=== PATIENT | male | born 1960 | race Caucasian/White ===

== ENCOUNTER 2023-10-28 18:32 | Inpatient (IN) | payer OTHER, SELFPAY ==
[2023-10-28] VITALS (9 sets, daily range): BP systolic 150–163; BP diastolic 77–92; PULSE 80–90; RESP 18–38; TEMP 37.3–38.7; O2SAT 91–95; BMI 30.8
--- NOTE | 2023-10-28 18:52 | ED.GENADULT ---
HPI - General Adult General Chief complaint: Syncope Stated complaint: N/V/D hit head T-0 Time Seen by Provider: 10/28/23 18:45 Source: patient Mode of arrival: Ambulatory History of Present Illness HPI narrative: Patient is a 63-year-old male. Is a diabetic. Has history of hypertension. Is on Trulicity for his diabetes. Several days ago started to develop nausea vomiting and diarrhea. Three days ago he was seen at an outside hospital. Had labs and IV fluids. Was discharged home with Zofran. Patient has continued to have his nausea and vomiting and diarrhea despite the nausea medications since he was seen at the outside facility. His states that he is become more fatigued recently and very unsteady when he walks around. Today he fell and hit his head on the ground. He states he does remember the fall. States he did not have chest pain or lightheadedness or shortness of breath or abdominal pain prior to falling. He currently has no specific pain in his arms or legs or hips. No chest pain no shortness of breath. Is having some abdominal cramping. Related Data Home Medications Medication Instructions Recorded Confirmed amlodipine 10 mg tablet 10 mg PO DAILY 10/28/23 10/28/23 celecoxib 200 mg capsule (Celebrex) 200 mg PO DAILY 10/28/23 10/28/23 cholecalciferol (vitamin D3) 125 125 mcg PO DAILY 10/28/23 10/28/23 mcg (5,000 unit) tablet dulaglutide 1.5 mg/0.5 mL 1.5 mg SUBCUT WEEKLY 10/28/23 10/28/23 subcutaneous pen injector (Trulicity) epinephrine 0.3 mg/0.3 mL 0.3 mg SUBCUT PRN PRN Allergic 10/28/23 10/28/23 injection, auto-injector (EpiPen) Reaction escitalopram oxalate 10 mg tablet 10 mg PO BEDTIME 10/28/23 10/28/23 (Lexapro) finasteride 5 mg tablet 5 mg PO DAILY 10/28/23 10/28/23 losartan 100 mg tablet 100 mg PO DAILY 10/28/23 10/28/23 magnesium 200 mg tablet 400 mg PO DAILY 10/28/23 10/28/23 multivitamin 1 tab PO DAILY 10/28/23 10/28/23 tamsulosin 0.4 mg capsule 0.4 mg PO BID 10/28/23 10/28/23 Allergies Allergy/AdvReac Type Severity Reaction Status Date / Time aspirin Allergy Hives Verified 10/28/23 18:52 [place] nut Allergy Anaphylaxis Verified 10/28/23 18:52 michael seed Allergy Anaphylaxis Verified 10/28/23 18:52 flaxseed Allergy Anaphylaxis Verified 10/28/23 18:52 hazelnut Allergy Anaphylaxis Verified 10/28/23 18:52 ibuprofen Allergy Hives Verified 10/28/23 18:52 pine nut Allergy Anaphylaxis Verified 10/28/23 18:52 sesame seed Allergy Anaphylaxis Verified 10/28/23 18:52 oxycodone AdvReac Vomiting Verified 10/28/23 18:52 Review of Systems Review of Systems ROS Unobtainable: All systems reviewed & are unremarkable except as noted in HPI and below Constitutional Constitutional: Reports system reviewed and no additional complaints, except as documented Patient History Social History household members: spouse Smoking Status: Never smoker alcohol intake: current Smoking Status: Never smoker alcohol intake frequency: holidays/special occasions only Substance Use Type: does not use Exam Initial Vital Signs Initial Vital Signs: Vital Signs Temperature 99.2 F 10/28/23 18:46 Pulse Rate 86 10/28/23 18:46 Respiratory Rate 18 10/28/23 18:46 Blood Pressure 153/90 H 10/28/23 18:46 Pulse Oximetry 91 10/28/23 18:46 Oxygen Delivery Method Room Air 10/28/23 18:46 Const General: cooperative and comfortable HENWI Head: contusion (Right forehead) Resp Effort & Inspection: normal respiratory effort, not labored and no respiratory distress Auscultation: clear to auscultation bilaterally Cardio Rate: regular rate Rhythm: regular rhythm GI Inspection: normal to inspection and non-distended Palpation: soft and No tender Skin General: no rashes or lesions noted Neuro General: patient alert, patient awake and moves all extremities Other: Patient is alert oriented but is obviously slow at answering questions. His states this is not normal for him Extrem General: No edema Scores GCS [place] coma scale eye opening: Spontaneous [place] coma scale verbal response: Orientated [place] coma scale motor response: Obey commands Marvin coma scale total score: 15 Course Orders Ordered: ED Orders 10/28/23 18:53 CT head/brain wo con Stat 10/28/23 18:54 EKG-12 Lead Stat 10/28/23 18:57 Complete Blood Count AUTO DIFF Stat Comprehensive Metabolic Panel Stat Lipase Stat 10/28/23 19:00 Covid-19 + FLU A/B + RSV - PCR Stat 10/28/23 19:53 Urine Microscopic Stat Acetaminophen (Acetaminophen 325 Mg Tablet) 650 mg PO Q6H PRN PRN Reason: Fever/Mild Pain (1-3) Al Hydrox/Mg Hydrox/Simethicone (Mag Hydrox/Alum/Simeth 30 Ml Udc) 30 ml PO Q6HR PRN PRN Reason: Dyspepsia Albuterol (Albuterol 2.5 Mg/3 Ml Neb (Adult)) 2.5 mg INH [id number] PRN PRN Reason: Shortness Of Breath Enoxaparin Sodium (Enoxaparin 30 Mg/0.3 Ml Syringe) 30 mg SUBCUT DAILY LIZETT Guaifenesin (Guaifenesin Er 600 Mg Tab) 600 mg PO Q12HR PRN PRN Reason: Cough Sodium Chloride (Normal Saline 0.9%) 1,000 mls @ 150 mls/hr IV CONT LIZETT Last Admin: 10/28/23 22:38 Dose: 150 mls/hr Documented By: SR Ceftriaxone Sodium 2,000 mg/ (Sodium Chloride) 100 mls @ 200 mls/hr IV Q24H LIZETT Naloxone HCl (Naloxone 0.4 Mg/Ml Vial) 0.2 mg IV Q2MIN PRN PRN Reason: Opiate Reversal Ondansetron HCl (Ondansetron 4 Mg/2 Ml Inj) 4 mg IV Q8HR PRN PRN Reason: Nausea And Vomiting Discontinued Medications Acetaminophen (Acetaminophen 325 Mg Tablet) 650 mg PO NOW ONE Stop: 10/28/23 21:06 Last Admin: 10/28/23 22:39 Dose: 650 mg Documented By: SR Sodium Chloride (Normal Saline 0.9%) 1,000 mls @ 1,000 mls/hr IV BOLUS ONE Stop: 10/28/23 19:51 Last Admin: 10/28/23 18:58 Dose: 1,000 mls/hr Documented By: BS Azithromycin 500 mg/ Dextrose 250 mls @ 250 mls/hr IV NOW ONE Stop: 10/28/23 20:51 Last Admin: 10/28/23 23:09 Dose: 250 mls/hr Documented By: SR Ceftriaxone Sodium 1,000 mg/ (Sodium Chloride) 100 mls @ 200 mls/hr IV NOW ONE Stop: 10/28/23 20:51 Last Admin: 10/28/23 22:38 Dose: 200 mls/hr Documented By: SR Metoclopramide HCl (Metoclopramide 10 Mg/2 Ml Inj) 10 mg IV NOW ONE Stop: 10/28/23 18:53 Last Admin: 10/28/23 18:58 Dose: 10 mg Documented By: BS Vital Signs Vital signs: Vital Signs - 8 hr 10/28/23 18:46 10/28/23 19:04 10/28/23 19:30 Temperature 99.2 F Pulse Rate 86 80 Respiratory Rate 18 27 H Blood Pressure 153/90 H 159/85 H Pulse Oximetry 91 91 Oxygen Delivery Method Room Air Room Air 10/28/23 19:30 10/28/23 20:00 10/28/23 20:00 Temperature Pulse Rate 81 82 Respiratory Rate 30 H 33 H Blood Pressure 153/87 H Pulse Oximetry 93 92 Oxygen Delivery Method Room Air Room Air Medical Decision Making Medical Records Medical records reviewed: Yes I reviewed the patient's medical records. Lab Data Lab results reviewed: Yes I reviewed the patient's lab results. 10/28/23 18:57 10/28/23 18:57 Labs: Lab Results 10/28/23 10/28/23 10/28/23 Range/Units 18:51 18:57 19:00 WBC 15.6 H (4.5-11.0) X10^3/uL RBC 5.12 (4.5-5.9) X10^6/uL Hgb 15.3 (13.5-17.5) g/dL Hct 42.8 (41-53) % MCV 83.7 (80-100) fL MCH 29.8 (26-34) PG MCHC 35.6 (30-36) % RDW 13.7 (11.6-14.8) % Plt Count 225 (150-400) X10^3/uL Neut % (Auto) 90.8 H (50-75) % Lymph % (Auto) 2.2 L (25-40) % [place] % (Auto) 6.9 (3-14) % Eos % (Auto) 0.0 L (2-4) % Baso % (Auto) 0.1 (0-2) % Neut # (Auto) 99765 H (8745-2738) /uL Lymph # (Auto) 300 L (1757-3640) /uL Harrison # (Auto) 1100 H (0-900) /uL Eos # (Auto) 0 (0-450) /uL Baso # (Auto) 0 (0-100) /uL Sodium 119 L* (137-145) mmol/L Potassium 3.6 (3.4-5.1) mmol/L Chloride 82 L (98-107) mmol/L Carbon Dioxide 26 (22-32) mmol/L BUN 19 (9-20) mg/dL Creatinine 0.78 (0.66-1.25) mg/dL Estimated GFR > 60 (>60) mL/min BUN/Creatinine Ratio 24.4 H (6-22) Glucose 217 H (80-110) mg/dL Lactate 1.6 (0.7-2.1) mmol/L Calcium 8.9 (8.4-10.2) mg/dL Total Bilirubin 1.7 H (0.2-1.3) mg/dL AST 86 H (17-59) IU/L ALT 91 H (<50) IU/L Alkaline Phosphatase 78 (38-126) U/L Total Protein 7.2 (6.3-8.2) g/dL Albumin 3.7 (3.5-5.0) g/dL Globulin 3.5 (1.7-4.1) g/dL Albumin/Globulin Ratio 1.1 (1.0-2.8) Lipase 51 (23-300) U/L Procalcitonin 1.43 H (<0.5) ng/mL Urine RBC (0-5/HPF) Urine WBC (0-5/HPF) Ur Squamous Epith Cells (0-5/HPF) Urine Bacteria (None) Ur Culture Indicated? Chlamy pneumoniae PCR Not detected (Not Detect) Adenovirus (PCR) Not detected (Not Detect) B.parapertussis DNA PCR Not detected (Not Detecte) Coronavirus OC43 (PCR) Not detected (Not Detect) Coronavirus HKU1 (PCR) Not detected (Not Detect) Coronavirus 229E (PCR) Not detected (Not Detect) SARS-CoV-2 (PCR) Negative (Negative) Coronavirus NL63 (PCR) (Not Detect) Human Metapneumovir PCR (Not Detect) Influenza A (RT-PCR) (NEGATIVE) Influenza Type A (PCR) (Not Detect) Influenza B (RT-PCR) (NEGATIVE) Influenza Type B (PCR) (Not Detect) M. pneumoniae (PCR) (Not Detect) Parainfluenza 1 (PCR) (Not Detect) Parainfluenza 2 (PCR) (Not Detect) Parainfluenza 3 (PCR) (Not Detect) Parainfluenza 4 (PCR) (Not Detect) RSV (PCR) (Negative) Entero/Rhino (PCR) (Not Detect) 10/28/23 10/28/23 10/28/23 Range/Units 19:00 19:00 19:53 WBC (4.5-11.0) X10^3/uL RBC (4.5-5.9) X10^6/uL Hgb (13.5-17.5) g/dL Hct (41-53) % MCV (80-100) fL MCH (26-34) PG MCHC (30-36) % RDW (11.6-14.8) % Plt Count (150-400) X10^3/uL Neut % (Auto) (50-75) % Lymph % (Auto) (25-40) % Harrison % (Auto) (3-14) % Eos % (Auto) (2-4) % Baso % (Auto) (0-2) % Neut # (Auto) (3475-1046) /uL Lymph # (Auto) (0277-5586) /uL Harrison # (Auto) (0-900) /uL Eos # (Auto) (0-450) /uL Baso # (Auto) (0-100) /uL Sodium (137-145) mmol/L Potassium (3.4-5.1) mmol/L Chloride (98-107) mmol/L Carbon Dioxide (22-32) mmol/L BUN (9-20) mg/dL Creatinine (0.66-1.25) mg/dL Estimated GFR (>60) mL/min BUN/Creatinine Ratio (6-22) Glucose (80-110) mg/dL Lactate (0.7-2.1) mmol/L Calcium (8.4-10.2) mg/dL Total Bilirubin (0.2-1.3) mg/dL AST (17-59) IU/L ALT (<50) IU/L Alkaline Phosphatase (38-126) U/L Total Protein (6.3-8.2) g/dL Albumin (3.5-5.0) g/dL Globulin (1.7-4.1) g/dL Albumin/Globulin Ratio (1.0-2.8) Lipase (23-300) U/L Procalcitonin (<0.5) ng/mL Urine RBC 1-5/hpf (0-5/HPF) Urine WBC 0-1/hpf (0-5/HPF) Ur Squamous Epith Cells 0-1 /hpf (0-5/HPF) Urine Bacteria Few (2-10) H (None) Ur Culture Indicated? Cult not indicated Chlamy pneumoniae PCR (Not Detect) Adenovirus (PCR) (Not Detect) B.parapertussis DNA PCR (Not Detecte) Coronavirus OC43 (PCR) (Not Detect) Coronavirus HKU1 (PCR) (Not Detect) Coronavirus 229E (PCR) (Not Detect) SARS-CoV-2 (PCR) Not detected (Negative) Coronavirus NL63 (PCR) Not detected (Not Detect) Human Metapneumovir PCR Not detected (Not Detect) Influenza A (RT-PCR) Flu a negative (NEGATIVE) Influenza Type A (PCR) Not detected (Not Detect) Influenza B (RT-PCR) Flu b negative (NEGATIVE) Influenza Type B (PCR) Not detected (Not Detect) M. pneumoniae (PCR) Not detected (Not Detect) Parainfluenza 1 (PCR) Not detected (Not Detect) Parainfluenza 2 (PCR) Not detected (Not Detect) Parainfluenza 3 (PCR) Not detected (Not Detect) Parainfluenza 4 (PCR) Not detected (Not Detect) RSV (PCR) Negative Not detected (Negative) Entero/Rhino (PCR) Not detected (Not Detect) Urine Dip Bedside Urine Glucose Negative Bedside Urine Bilirubin - Negative Bedside Urine Ketone - Negative Urine Specific [place] 1.025 Bedside Urine Occult Blood +/- Bedside Urine pH 6 Bedside Urine Urobilinogen 2+ 4mg Bedside Urine Nitrite - Negative Bedside Urine Leukocytes - Negative Esterase Point of care testing: Urine Dip Bedside Urine Glucose Negative Bedside Urine Bilirubin - Negative Bedside Urine Ketone - Negative Urine Specific [place] 1.025 Bedside Urine Occult Blood +/- Bedside Urine pH 6 Bedside Urine Urobilinogen 2+ 4mg Bedside Urine Nitrite - Negative Bedside Urine Leukocytes - Negative Esterase Imaging Data CT scan - head: Radiologist's Impression: PROCEDURE: CT HEAD/BRAIN WO CON INDICATIONS: fall with head injury, headache, vomiting TECHNIQUE: Noncontrast 4.5 mm thick angled axial sections acquired from the foramen magnum to the vertex, with coronal and sagittal reformats. For radiation dose reduction, the following was used: automated exposure control, adjustment of mA and/or kV according to patient size. COMPARISON: None. FINDINGS: Image quality: Nondiagnostic CSF spaces: Fairly symmetric ventricular system and grossly patent basal cisterns. No definite extra-axial fluid collections, though small once may be obscured by motion artifact. Brain: No obvious intraparenchymal hemorrhage or mass effect. Small details may be missed by motion artifact. Skull and face: No visible depressed skull fracture or significant subgaleal hematoma. Sinuses: Visualized sinuses and mastoids are clear. IMPRESSION: 1. Suboptimal scan due to motion artifact. 2. Given limitations due to motion, no acute abnormalities are seen. Chest x-ray: Radiologist's Impression: PROCEDURE: XR CHEST 1V INDICATIONS: eval for PNA TECHNIQUE: One view of the chest was acquired. COMPARISON: Non FINDINGS: Surgical changes and devices: None. Lungs and pleura: Dense consolidations throughout the left lung as well as the right lower lung. No pleural effusions or pneumothorax. Mediastinum: Mediastinal contours appear normal. Heart size is normal. Bones and chest wall: No suspicious bony lesions. Overlying soft tissues appear unremarkable. IMPRESSION: Left lung and right lower lung dense consolidations are concerning for multifocal pneumonia. ECG Data Attestation: I personally reviewed and interpreted this ECG as follows: Interpretation: Sinus rhythm Ventricular rate 82 Normal axis Normal QRS No ST T wave changes MDM Narrative Medical decision making narrative: Initially patient arrived alert, afebrile, oxygen saturations in the low 90s in clinically signs of dehydration with dry skin and dry mucous membranes. This did fit the clinical presentation of multiple days of nausea vomiting and diarrhea. He was obviously slow to answer questions. He did fall and hit his head. It sounds like he just lost his balance and fell forward. He has no specific injuries from this other than abrasions on his forehead. His head CT was unremarkable. Labs then returned. Kidney functions unremarkable. Does have a leukocytosis. Still did not have a specific source of an infection. Patient was found to be hyponatremic with a sodium of 119. I was able to obtain records from his emergency department visit at an outside facility just 3 days ago where his sodium was 131. Patient has been administered fluids. He was given Reglan for his nausea as the Zofran at home seems to not be working for him. At this point decision was made to admit to the hospital. Further evaluation with the patient's states that he has had a cough recently but no fevers. Some concern about Legionella has this infection can give hyponatremia and also GI effects specifically in the setting of his oxygen saturations in the low 90s. I discussed this with the hospitalist. Plan will be to admit to the hospital. A respiratory panel was then added to his labs which was subsequently negative. Chest x-ray was obtained. There was concern on the chest x-ray about multifocal pneumonia. This is when repeat vital signs show that the patient is now febrile. Blood cultures have been ordered. We will treat his pneumonia with Rocephin and azithromycin. Procalcitonin and lactate ordered with procalcitonin being elevated lactate be normal. I did discuss the case with Dr. Holcomb hospitalist on-call who will admit for further evaluation and treatment. Discussed the need for admission with the patient and . They expressed understanding and agreement as well. Discharge Plan Departure Patient Disposition: Admitted As Inpatient Clinical Impression: Hyponatremia, Dehydration, Nausea and vomiting, Diarrhea, Pneumonia Admit Date/Time: 10/28/23 20:28 Admit Provider: Honorio Mckinnon
[2023-10-28] MEDS: METOCLOPRAMIDE 10 MG/2 ML INJ IV (18:58)
[2023-10-28] MEDS: SODIUM CHLORIDE 0.9% 1,000 ML 1000 ML IV (18:58)
--- NOTE | 2023-10-28 19:12 | PC.NURSE ---
To CT via stretcher
[2023-10-28 19:13] LABS: Alanine Aminotransferase 91 IU/L (<50); Albumin 3.7 g/dL (3.5-5.0); Albumin Globulin Ratio 1.1 (1.0-2.8); Alkaline Phosphatase 78 U/L (38-126); BUN Creatinine Ratio 24.4 (6-22); Bilirubin Total 1.7 mg/dL (0.2-1.3); Blood Urea Nitrogen 19 mg/dL (9-20); Calcium 8.9 mg/dL (8.4-10.2); Carbon Dioxide 26 mmol/L (22-32); Chloride 82 mmol/L (98-107); Estimated Glomerular Filt Rate > 60 mL/min (>60); Globulin 3.5 g/dL (1.7-4.1); Glucose 217 mg/dL (80-110); HEMOLYSIS < 15 (0-50); Lipase 51 U/L (23-300); Potassium 3.6 mmol/L (3.4-5.1); Total Protein 7.2 g/dL (6.3-8.2)
[2023-10-28 19:16] LABS: Sodium 119 mmol/L (137-145)
[2023-10-28 19:21] LABS: Add Manual Diff / Slide Review NO; Basophils Absolute Auto 0 /uL (0-100); Basophils Percent Auto 0.1 % (0-2); Eosinophils Absolute Auto 0 /uL (0-450); Hematocrit 42.8 % (41-53); Hemoglobin 15.3 g/dL (13.5-17.5); Lymphocytes Absolute Auto 300 /uL (1100-4500); Lymphocytes Percent Auto 2.2 % (25-40); Mean Corpuscular HGB Conc 35.6 % (30-36); Mean Corpuscular Hemoglobin 29.8 PG (26-34); Mean Corpuscular Volume 83.7 fL (80-100); Monocytes Absolute Auto 1100 /uL (0-900); Monocytes Percent Auto 6.9 % (3-14); Neutrophils Absolute Auto 14200 /uL (1500-7000); Neutrophils Percent Auto 90.8 % (50-75); Platelet Count 225 X10^3/uL (150-400); Red Blood Cell Count 5.12 X10^6/uL (4.5-5.9); Red Cell Distribution Width 13.7 % (11.6-14.8); White Blood Cell Count 15.6 X10^3/uL (4.5-11.0)
--- NOTE | 2023-10-28 19:25 | PC.NURSE ---
Returned from CT. Remains A&OX4, speech clear/ appropriate. C/O persistent 8/10 SERRA along w/ hiccoughs & mild nausea.
[2023-10-28 19:29] LABS: Aspartate Aminotransferase 86 IU/L (17-59)
[2023-10-28 20:08] LABS: Influenza A - CEPHEID Flu A NEGATIVE (NEGATIVE); Influenza B - CEPHEID Flu B NEGATIVE (NEGATIVE); Respiratory Syncytial Virus Negative (Negative)
[2023-10-28 20:15] LABS: COVID-19 CEPHEID 4-PLEX PCR Negative (Negative)
[2023-10-28 20:29] LABS: Bacteria Urine Few (2-10); Culture Indicated Urine Cult Not Indicated; RBC Urine 1-5/HPF (0-5/HPF); Squamous Epithelial Cell Urine 0-1 /HPF (0-5/HPF); WBC Urine 0-1/HPF (0-5/HPF)
--- NOTE | 2023-10-28 20:32 | DI.RAD.S_ITS ---
PROCEDURE: XR CHEST 1V INDICATIONS: eval for PNA TECHNIQUE: One view of the chest was acquired. COMPARISON: Non FINDINGS: Surgical changes and devices: None. Lungs and pleura: Dense consolidations throughout the left lung as well as the right lower lung. No pleural effusions or pneumothorax. Mediastinum: Mediastinal contours appear normal. Heart size is normal. Bones and chest wall: No suspicious bony lesions. Overlying soft tissues appear unremarkable. IMPRESSION: Left lung and right lower lung dense consolidations are concerning for multifocal pneumonia. Approved by: Kathy Van M.D. on 10/28/2023 at 21:24
[2023-10-28 21:04] LABS: Lactate (Lactic Acid) 1.6 mmol/L (0.7-2.1)
[2023-10-28 21:22] LABS: Procalcitonin 1.43 ng/mL (<0.5)
[2023-10-28] MEDS: SODIUM CHLORIDE 0.9% 1,000 ML 150 ML IV (22:38)
[2023-10-28] MEDS: cefTRIAXone 1,000 MG in SODIUM CHLORIDE 0.9% 100 ML 200 MG IV (22:38)
[2023-10-28] MEDS: ACETAMINOPHEN 325 MG TABLET 650 MG PO (22:39)
[2023-10-28 22:58] LABS: Adenovirus Not Detected (Not Detect); B. parapertussis Not Detected (Not Detecte); Bordetella pertussis Not Detected (Not Detect); Chlamydophila pneumoniae Not Detected (Not Detect); Coronavirus 229E Not Detected (Not Detect); Coronavirus HKU1 Not Detected (Not Detect); Coronavirus NL 63 Not Detected (Not Detect); Coronavirus OC43 Not Detected (Not Detect); Human Metapneumovirus Not Detected (Not Detect); Human Rhinovirus/Enterovirus Not Detected (Not Detect); Influenza A Not Detected (Not Detect); Influenza B Not Detected (Not Detect); Mycoplasma pneumoniae Not Detected (Not Detect); Parainfluenza Virus 1 Not Detected (Not Detect); Parainfluenza Virus 2 Not Detected (Not Detect); Parainfluenza Virus 3 Not Detected (Not Detect); Parainfluenza Virus 4 Not Detected (Not Detect); Respiratory Syncytial Virus Not Detected (Not Detect); SARS- CoV-2 Not Detected (Not Detecte)
[2023-10-28] MEDS: AZITHROMYCIN 500 MG in DEXTROSE 5% IN WATER 250 ML 250 MG IV (23:09)
[2023-10-29] VITALS (9 sets, daily range): BP systolic 119–152; BP diastolic 69–84; PULSE 70–93; RESP 16–22; TEMP 36.2–37.7; O2SAT 91–97
[2023-10-29 02:15] LABS: BUN Creatinine Ratio 19.5 (6-22); Blood Urea Nitrogen 17 mg/dL (9-20); Calcium 7.9 mg/dL (8.4-10.2); Carbon Dioxide 27 mmol/L (22-32); Chloride 84 mmol/L (98-107); Estimated Glomerular Filt Rate > 60 mL/min (>60); Glucose 208 mg/dL (80-110); HEMOLYSIS < 15 (0-50); Potassium 3.3 mmol/L (3.4-5.1); Sodium 121 mmol/L (137-145)
--- NOTE | 2023-10-29 03:36 | P.HP_ITS ---
History of Present Illness History of Present Illness Date Patient Seen: 10/28/23 Chief complaint: N/V/D hit head T-0 Narrative: PNA, Hyponatremia, Syncope 63-year-old male. Is a diabetic. Has history of hypertension. Is on Trulicity for his diabetes. Several days ago started to develop nausea vomiting and diarrhea. Three days ago he was seen at an outside hospital. Had labs and IV fluids. Was discharged home with Zofran. Patient has continued to have his nausea and vomiting and diarrhea despite the nausea medications since he was seen at the outside facility. His states that he is become more fatigued recently and very unsteady when he walks around. Today he fell and hit his head on the ground. He states he does remember the fall. States he did not have chest pain or lightheadedness or shortness of breath or abdominal pain prior to falling. FORMERLY [facility], 1928–1983 Medical History (Updated 10/29/23 @ 08:49 by Honorio Holcomb MD) Enlarged prostate HTN (hypertension) Social History household members: spouse Smoking Status: Never smoker alcohol intake: current Meds Home Medications and Allergies Home Medications Medication Instructions Recorded Confirmed Type amlodipine 10 mg tablet 10 mg PO DAILY 10/28/23 10/28/23 History celecoxib 200 mg capsule (Celebrex) 200 mg PO DAILY 10/28/23 10/28/23 History cholecalciferol (vitamin D3) 125 125 mcg PO DAILY 10/28/23 10/28/23 History mcg (5,000 unit) tablet dulaglutide 1.5 mg/0.5 mL 1.5 mg SUBCUT WEEKLY 10/28/23 10/28/23 History subcutaneous pen injector (Trulicity) epinephrine 0.3 mg/0.3 mL 0.3 mg SUBCUT PRN PRN Allergic 10/28/23 10/28/23 History injection, auto-injector (EpiPen) Reaction escitalopram oxalate 10 mg tablet 10 mg PO BEDTIME 10/28/23 10/28/23 History (Lexapro) finasteride 5 mg tablet 5 mg PO DAILY 10/28/23 10/28/23 History losartan 100 mg tablet 100 mg PO DAILY 10/28/23 10/28/23 History magnesium 200 mg tablet 400 mg PO DAILY 10/28/23 10/28/23 History multivitamin 1 tab PO DAILY 10/28/23 10/28/23 History tamsulosin 0.4 mg capsule 0.4 mg PO BID 10/28/23 10/28/23 History Allergies Allergy/AdvReac Type Severity Reaction Status Date / Time aspirin Allergy Hives Verified 10/28/23 18:52 [place] nut Allergy Anaphylaxis Verified 10/28/23 18:52 michael seed Allergy Anaphylaxis Verified 10/28/23 18:52 flaxseed Allergy Anaphylaxis Verified 10/28/23 18:52 hazelnut Allergy Anaphylaxis Verified 10/28/23 18:52 ibuprofen Allergy Hives Verified 10/28/23 18:52 pine nut Allergy Anaphylaxis Verified 10/28/23 18:52 sesame seed Allergy Anaphylaxis Verified 10/28/23 18:52 oxycodone AdvReac Vomiting Verified 10/28/23 18:52 Review of Systems Review of Systems Narrative: He was very sleepy during the interview and his was providing some information Constitutional Comments: fatigued Cardiovascular Comments: w/o chest pain Gastrointestinal Comments: nausea, vomiting, diarrhea Neurologic Comments: headache, frontal Psychiatric Comments: forgetful Exam Vital Signs (past 8 hours): - 10/28/23 20:00 10/28/23 20:00 10/28/23 20:30 Temperature Pulse Rate 82 Respiratory Rate 33 H Blood Pressure 153/87 H 163/92 H Pulse Oximetry 92 Oxygen Delivery Method Room Air Oxygen Flow Rate 10/28/23 20:30 10/28/23 20:53 10/28/23 21:00 Temperature 101.6 F H Pulse Rate 83 Respiratory Rate 37 H Blood Pressure 150/77 H Pulse Oximetry 92 Oxygen Delivery Method Room Air Oxygen Flow Rate 10/28/23 21:00 10/28/23 21:30 10/28/23 21:30 Temperature Pulse Rate 81 82 Respiratory Rate 37 H 38 H Blood Pressure 155/85 H Pulse Oximetry 92 94 Oxygen Delivery Method Room Air Nasal Cannula Nasal Cannula Oxygen Flow Rate 2 10/28/23 21:40 10/28/23 22:17 10/29/23 01:00 Temperature 99.6 F 98.4 F Pulse Rate 90 70 Respiratory Rate 24 22 Blood Pressure 154/90 H 119/70 Pulse Oximetry 95 91 Oxygen Delivery Method Nasal Cannula Oxygen Flow Rate 2 Oxygen Delivery Method Nasal Cannula Oxygen Flow Rate 2 Narrative Exam Narrative: laying in bed in no distress, sleepy, in no distress HENMT Other: not traumatic Eyes Other: eomi, reactive and equal pupils Neck Other: supple Resp Other: wheezy Cardio Other: RRR Neuro Other: w/o focal deficits Psych Other: encephalopathic Objective Labs 10/29/23 07:40 10/29/23 07:40 Labs: Laboratory Results - last 24 hr 10/28/23 10/28/23 10/28/23 18:51 18:57 19:00 WBC 15.6 H RBC 5.12 Hgb 15.3 Hct 42.8 MCV 83.7 MCH 29.8 MCHC 35.6 RDW 13.7 Plt Count 225 Neut % (Auto) 90.8 H Lymph % (Auto) 2.2 L [facility] % (Auto) 6.9 Eos % (Auto) 0.0 L Baso % (Auto) 0.1 Neut # (Auto) 77595 H Lymph # (Auto) 300 L [facility] # (Auto) 1100 H Eos # (Auto) 0 Baso # (Auto) 0 Sodium 119 L* Potassium 3.6 Chloride 82 L Carbon Dioxide 26 BUN 19 Creatinine 0.78 Estimated GFR > 60 BUN/Creatinine Ratio 24.4 H Glucose 217 H Lactate 1.6 Calcium 8.9 Total Bilirubin 1.7 H AST 86 H ALT 91 H Alkaline Phosphatase 78 Total Protein 7.2 Albumin 3.7 Globulin 3.5 Albumin/Globulin Ratio 1.1 Lipase 51 Procalcitonin 1.43 H Urine RBC Urine WBC Ur Squamous Epith Cells Urine Bacteria Ur Culture Indicated? Chlamy pneumoniae PCR Not detected Adenovirus (PCR) Not detected B.parapertussis DNA PCR Not detected Coronavirus OC43 (PCR) Not detected Coronavirus HKU1 (PCR) Not detected Coronavirus 229E (PCR) Not detected SARS-CoV-2 (PCR) Negative Coronavirus NL63 (PCR) Human Metapneumovir PCR Influenza A (RT-PCR) Influenza Type A (PCR) Influenza B (RT-PCR) Influenza Type B (PCR) M. pneumoniae (PCR) Parainfluenza 1 (PCR) Parainfluenza 2 (PCR) Parainfluenza 3 (PCR) Parainfluenza 4 (PCR) RSV (PCR) Entero/Rhino (PCR) 10/28/23 10/28/23 10/28/23 19:00 19:00 19:53 WBC RBC Hgb Hct MCV MCH MCHC RDW Plt Count Neut % (Auto) Lymph % (Auto) [facility] % (Auto) Eos % (Auto) Baso % (Auto) Neut # (Auto) Lymph # (Auto) [facility] # (Auto) Eos # (Auto) Baso # (Auto) Sodium Potassium Chloride Carbon Dioxide BUN Creatinine Estimated GFR BUN/Creatinine Ratio Glucose Lactate Calcium Total Bilirubin AST ALT Alkaline Phosphatase Total Protein Albumin Globulin Albumin/Globulin Ratio Lipase Procalcitonin Urine RBC 1-5/hpf Urine WBC 0-1/hpf Ur Squamous Epith Cells 0-1 /hpf Urine Bacteria Few (2-10) H Ur Culture Indicated? Cult not indicated Chlamy pneumoniae PCR Adenovirus (PCR) B.parapertussis DNA PCR Coronavirus OC43 (PCR) Coronavirus HKU1 (PCR) Coronavirus 229E (PCR) SARS-CoV-2 (PCR) Not detected Coronavirus NL63 (PCR) Not detected Human Metapneumovir PCR Not detected Influenza A (RT-PCR) Flu a negative Influenza Type A (PCR) Not detected Influenza B (RT-PCR) Flu b negative Influenza Type B (PCR) Not detected M. pneumoniae (PCR) Not detected Parainfluenza 1 (PCR) Not detected Parainfluenza 2 (PCR) Not detected Parainfluenza 3 (PCR) Not detected Parainfluenza 4 (PCR) Not detected RSV (PCR) Negative Not detected Entero/Rhino (PCR) Not detected 10/29/23 01:54 WBC RBC Hgb Hct MCV MCH MCHC RDW Plt Count Neut % (Auto) Lymph % (Auto) [facility] % (Auto) Eos % (Auto) Baso % (Auto) Neut # (Auto) Lymph # (Auto) [facility] # (Auto) Eos # (Auto) Baso # (Auto) Sodium 121 L Potassium 3.3 L Chloride 84 L Carbon Dioxide 27 BUN 17 Creatinine 0.87 Estimated GFR > 60 BUN/Creatinine Ratio 19.5 Glucose 208 H Lactate Calcium 7.9 L Total Bilirubin AST ALT Alkaline Phosphatase Total Protein Albumin Globulin Albumin/Globulin Ratio Lipase Procalcitonin Urine RBC Urine WBC Ur Squamous Epith Cells Urine Bacteria Ur Culture Indicated? Chlamy pneumoniae PCR Adenovirus (PCR) B.parapertussis DNA PCR Coronavirus OC43 (PCR) Coronavirus HKU1 (PCR) Coronavirus 229E (PCR) SARS-CoV-2 (PCR) Coronavirus NL63 (PCR) Human Metapneumovir PCR Influenza A (RT-PCR) Influenza Type A (PCR) Influenza B (RT-PCR) Influenza Type B (PCR) M. pneumoniae (PCR) Parainfluenza 1 (PCR) Parainfluenza 2 (PCR) Parainfluenza 3 (PCR) Parainfluenza 4 (PCR) RSV (PCR) Entero/Rhino (PCR) Assessment & Plan Assessment and plan (1) Pneumonia: Status: Acute Plan: Started on Rocephin in the ED (2) Hyponatremia: Status: Acute Plan: Acute, had NS in ED BMP monitored slow correction hypovolemic - poor oral intake, nausea, vomiting (3) HTN (hypertension): Status: Acute Plan: Losartan and Norvasc on hold (4) Enlarged prostate: Status: Acute Plan: Flomax / Finasteride (5) Depression: Status: Acute Plan: Lexapro Quality VTE Deep Vein Thrombosis/Pulmonary Embolism Present on Admission: No
[2023-10-29 07:58] LABS: Magnesium 2.1 mg/dL (1.6-2.3)
[2023-10-29 08:12] LABS: Add Manual Diff / Slide Review YES; Alanine Aminotransferase 118 IU/L (<50); Albumin 3.2 g/dL (3.5-5.0); Alkaline Phosphatase 74 U/L (38-126); Aspartate Aminotransferase 112 IU/L (17-59); BUN Creatinine Ratio 22.9 (6-22); Bilirubin Total 1.3 mg/dL (0.2-1.3); Blood Urea Nitrogen 19 mg/dL (9-20); Calcium 8.3 mg/dL (8.4-10.2); Carbon Dioxide 30 mmol/L (22-32); Chloride 85 mmol/L (98-107); Estimated Glomerular Filt Rate > 60 mL/min (>60); Globulin 3.2 g/dL (1.7-4.1); Glucose 179 mg/dL (80-110); HEMOLYSIS < 15 (0-50); Hematocrit 41.7 % (41-53); Hemoglobin 14.7 g/dL (13.5-17.5); Mean Corpuscular HGB Conc 35.3 % (30-36); Mean Corpuscular Hemoglobin 29.9 PG (26-34); Mean Corpuscular Volume 84.7 fL (80-100); Platelet Count 204 X10^3/uL (150-400); Potassium 3.9 mmol/L (3.4-5.1); Red Blood Cell Count 4.92 X10^6/uL (4.5-5.9); Red Cell Distribution Width 13.7 % (11.6-14.8); Sodium 122 mmol/L (137-145); Total Protein 6.4 g/dL (6.3-8.2); White Blood Cell Count 14.1 X10^3/uL (4.5-11.0)
[2023-10-29] MEDS: ONDANSETRON 4 MG/2 ML INJ IV ×3 (08:21→22:52)
[2023-10-29] MEDS: MAGNESIUM OXIDE 400 MG TABLET PO (08:21)
[2023-10-29] MEDS: ACETAMINOPHEN 325 MG TABLET 650 MG PO ×2 (08:22→18:29)
[2023-10-29] MEDS: FINASTERIDE 5 MG TABLET PO (08:22)
[2023-10-29] MEDS: TAMSULOSIN 0.4 MG CAPSULE PO ×2 (08:22→20:28)
[2023-10-29] MEDS: ENOXAPARIN 30 MG/0.3 ML SYRINGE SUBCUT (08:23)
[2023-10-29] MEDS: POTASSIUM CHLORIDE 20 MEQ TAB 40 MEQ PO (08:23)
[2023-10-29] MEDS: levoFLOXacin 750 MG/150 ML PIGGYBACK 100 MG IV (08:23)
[2023-10-29 08:29] LABS: Procalcitonin 1.49 ng/mL (<0.5)
[2023-10-29] MEDS: INSULIN LISPRO 100 UNIT/ML 3ML VIAL SUBCUT ×3 (08:30→16:34)
[2023-10-29] MEDS: INSULIN GLARGINE 100 UNIT/ML 3ML PEN 10 UNIT SUBCUT (08:31)
--- NOTE | 2023-10-29 09:00 | DI.CT.S_ITS ---
PROCEDURE: CT CHEST W CON INDICATIONS: assess pneumonia further TECHNIQUE: After the administration of intravenous contrast, 5 mm thick sections acquired from the pulmonary apices to the posterior costophrenic angles. 1 mm axial lung, 5 mm thick coronal and sagittal reformats and 7 mm axial MIP were acquired. For radiation dose reduction, the following was used: automated exposure control, adjustment of mA and/or kV according to patient size. COMPARISON: [facility], CR, XR CHEST 1V, 10/28/2023, 20:34. FINDINGS: Image quality: Diagnostic. Lower Neck: No enlarged lymph nodes. Thyroid: No thyroid nodules which require sonographic follow up, per consensus guidelines. Axillae: No enlarged lymph nodes. Chest Wall: Unremarkable. Bones: Unremarkable. Lungs and Pleura: No pneumothorax but there are small bilateral posterior free-flowing pleural effusions. The severe lung disease pattern is again noted as was seen on plain film imaging 1 day ago. This is most pronounced at the left upper lobe, and considering differences in technique likely has not changed. Heart: Heart size is normal. No pericardial effusion. Thoracic Vessels: The aorta and pulmonary arteries demonstrate normal size. Mediastinum and Linette: No enlarged lymph nodes. Esophagus: No wall thickening. No hiatal hernia. Upper Abdomen: Visualized upper abdomen solid organs and bowel loops appear normal. IMPRESSION: Bilateral severe pneumonia, left greater than right, again noted. This could represent atypical/viral pneumonia. Small posterior layering simple appearing pleural effusions. No central mass lesion found. Dictated by: Rohan Larsen M.D. on 10/29/2023 at 13:15 Approved by: Rohan Larsen M.D. on 10/29/2023 at 13:17
[2023-10-29 09:44] LABS: Neutrophils Absolute Manual 12126 /uL (3000-5900); RBC Morphology Normal Morphology; Total Cells Counted 100
--- NOTE | 2023-10-29 10:42 | OT.IP.EVAL ---
Current Diagnoses Hypo-osmolality and hyponatremia (10/28/23) Depression, unspecified (10/28/23) Essential (primary) hypertension (10/28/23) Pneumonia, unspecified organism (10/28/23) Benign prostatic hyperplasia without lower urinary tract symptoms (10/28/23) Past Medical History (Last Updated 10/29/23 @ 08:49 by Honorio Holcomb MD) Enlarged prostate HTN (hypertension) Occupational Therapy Inpatient Evaluation/Re-Eval M1 PT/OT-IP Prior Functional Status Start: 10/29/23 11:26 Freq: NEEDED Status: Active Protocol: Document 10/29/23 11:27 [facility] (Rec: 10/29/23 11:41 [facility] [id number]) Medical Review Prior Functional Status Communication Independent Mobility and Gait Independent and did not use a device. Activities of Daily Living and IADL's Completely independent with all ADL, IADL and works for [employer]. Social History Household Members spouse Living Arrangements House Number of Floors (Floors) One Floor Number of Stairs To Enter/Railing? 2 steps with no rails to enter the house. Home Environment High Toilet,Walk in Shower Home Equipment Hand Held Shower Employment Status [employer] Employed M2 OT-IP Current Condition Start: 10/29/23 11:26 Freq: Status: Active Protocol: Document 10/29/23 11:27 [facility] (Rec: 10/29/23 11:41 [facility] [id number]) Occupational Therapy Current Condition Current Condition Evaluation Date 10/28/23 Treatment Diagnosis PNA, hyponatremia, nausea Diagnosis Onset Date 10/29/23 M3 OT- IP Subjective and Pain Start: 10/29/23 11:26 Freq: Status: Active Protocol: Document 10/29/23 11:27 [facility] (Rec: 10/29/23 11:41 [facility] [id number]) OT- Subjective Occupational Therapy Visit Type Type Initial Evaluation Visit Start Time 10:20 Visit Stop Time 10:42 Total Visit Minutes 22 Occupational Therapy Visit Comments Patient Comments Pt agreed to get up, pt's in the room. Patient/Caregiver Goals To go home. OT Pain Assessment Pain When Pain Assessed At Rest Pain Present Pain Present Denied Pain M4 OT- IP ADL's Start: 10/29/23 11:26 Freq: Status: Active Protocol: Document 10/29/23 11:27 [facility] (Rec: 10/29/23 11:41 [facility] [id number]) OT [id number] Comments OT Self-Feeding Comments Per pt's pt has not been able to keep down much food. OT ADL-Grooming Comments OT Grooming Comments Not performed. OT ADL-Oral Care Comments Oral Care Comments Not performed. OT ADL-Dressing Comments OT Dressing Comments Not performed as pt not feeling well. OT ADL-Toileting Comments OT Toileting Comments Pt's states pt able to get to the bathroom earlier with the FWW and assist. OT ADL-Bathing Bathing Type Bathing Type Sponge Bath General Evaluation Bathing Ability Moderate Assistance Areas Needing Assistance Wash/Dry Back Comments OT Bathing Comments Pt able to participate in sponging off at this time. M5 OT- IP IADL's Start: 10/29/23 11:26 Freq: Status: Active Protocol: Document 10/29/23 11:27 [facility] (Rec: 10/29/23 11:41 [facility] [id number]) OT-Instrumental Activities of Daily Living Home Safety Awareness Home Safety Comments Pt is a bit groggy, tired and not feeling well as pt's having to to correct pt's answers at times. M6 OT- IP Functional Cognition Start: 10/29/23 11:26 Freq: Status: Active Protocol: Document 10/29/23 11:27 [facility] (Rec: 10/29/23 11:41 [facility] [id number]) Cognitive Factors Limiting Selfcare Function Cognitive Ability Level of Alertness Alert Patient Orientation Name Attention Span Ability Capable of Focused Attention, Capable of Sustained Attention Ability to Follow Commands Able to Follow One Step Commands Cognitive Comments Cognitive Assessment Comments Pt able to follow command but needing cues for safety for FWW use as pt normally independent with all ambulation needs. Pt's having to answer some questions as pt not thinking clearly at this time. Emphasized for pt not to get up on his own and use the call light for assist due to pt feeling light headed and unsteady on his feet at this time. OT- Vision and Hearing OT- Vision Assessment Visual Acuity Glasses For Reading M7 OT- IP Mobility and Balance Start: 10/29/23 11:26 Freq: Status: Active Protocol: Document 10/29/23 11:27 [facility] (Rec: 10/29/23 11:41 [facility] [id number]) OT-Transfer Assessment Sit to and From Stand Sit to and from Stand Standby Assistance Devices Transfer Assistive Devices Gait Belt,Front Wheeled Walker Comments Mobility Comments VC to push from the bed to stand to the FWW. BP sitting 122/75, dropped to 107/68 standing and then 130/81 while seated on the edge of the bed . Pt not wanting to get back into bed and just wanting to sit at the edge of the bed with his head flexed. OT- Balance Assessment Sitting Balance and Reactions Static Sitting Balance Ability Good Standing Balance and Reactions Static Standing Balance Ability Fair M8 OT- IP Objective Assessments Start: 10/29/23 11:26 Freq: Status: Active Protocol: Document 10/29/23 11:27 [facility] (Rec: 10/29/23 11:41 [facility] [id number]) OT Gross Range of Motion Upper Extremity Range of Motion Assessment Within Functional Limits OT Strength Upper Extremity Strength Assessment Within Functional Limits OT- Coordination Assessment Upper Extremity Finger to Nose Test Within Functional Limits OT-Muscle Tone Assessment Muscle Tone WNL Yes M9 OT- IP Assessment and Plan Start: 10/29/23 11:26 Freq: Status: Active Protocol: Document 10/29/23 11:27 [facility] (Rec: 10/29/23 11:41 [facility] [id number]) OT Summary Assessment and Plan Potential Rehabilitation Potential Good Analytic Complexity at Evaluation Moderate Summary OT Impairments Balance,Functional Mobility, Grooming,Dressing,Toileting, Bathing,Toilet Transfers, Shower Transfers,Activity Tolerance Progress Towards Goals Slow Progress due to Medical Issues Assessment Summary Pt MOD complexity and for the past week has had nausea, vomiting,diarrhea, and not been eating. Pt also having decreased BP while standing. Prior pt was completely independent with all needs and working at [employer]. Pending on when pt gets discharged and how he progresses, pt may need at shower chair and FWW. Goals Self-Feeding Goal Independent Grooming Goal Independent Dressing Goal Independent Toileting Goal Independent Bathing Goal Independent Toilet Transfer Goal Independent Shower Transfer Goal Independent Days to Meet Goals 7 Frequency of Treatment Frequency Of Treatment Once a Day Treatment Plan OT Treatment Plan ADL Training,Functional Mobility,Patient/Family Education,Discharge Planning Discharge Recommendations OT Discharge Recommendations Home with Assistance Transportation Needs at Discharge Private Vehicle
[2023-10-29] MEDS: SODIUM CHLORIDE 0.9% 1,000 ML 150 ML IV (11:04)
--- NOTE | 2023-10-29 11:15 | PM.HP.1 ---
History of Present Illness History of Present Illness Date Patient Seen: 10/28/23 Chief complaint: N/V/D hit head T-0 Narrative: From overnight provider: 63-year-old male. Is a diabetic. Has history of hypertension. Is on Trulicity for his diabetes. Several days ago started to develop nausea vomiting and diarrhea. Three days ago he was seen at an outside hospital. Had labs and IV fluids. Was discharged home with Zofran. Patient has continued to have his nausea and vomiting and diarrhea despite the nausea medications since he was seen at the outside facility. His states that he is become more fatigued recently and very unsteady when he walks around. Today he fell and hit his head on the ground. He states he does remember the fall. States he did not have chest pain or lightheadedness or shortness of breath or abdominal pain prior to falling. [facility] Medical History (Updated 10/29/23 @ 08:49 by Honorio Holcomb MD) Enlarged prostate HTN (hypertension) Social History household members: spouse Smoking Status: Never smoker alcohol intake: current Meds Home Medications and Allergies Home Medications Medication Instructions Recorded Confirmed Type amlodipine 10 mg tablet 10 mg PO DAILY 10/28/23 10/28/23 History celecoxib 200 mg capsule (Celebrex) 200 mg PO DAILY 10/28/23 10/28/23 History cholecalciferol (vitamin D3) 125 125 mcg PO DAILY 10/28/23 10/28/23 History mcg (5,000 unit) tablet dulaglutide 1.5 mg/0.5 mL 1.5 mg SUBCUT WEEKLY 10/28/23 10/28/23 History subcutaneous pen injector (Trulicity) epinephrine 0.3 mg/0.3 mL 0.3 mg SUBCUT PRN PRN Allergic 10/28/23 10/28/23 History injection, auto-injector (EpiPen) Reaction escitalopram oxalate 10 mg tablet 10 mg PO BEDTIME 10/28/23 10/28/23 History (Lexapro) finasteride 5 mg tablet 5 mg PO DAILY 10/28/23 10/28/23 History losartan 100 mg tablet 100 mg PO DAILY 10/28/23 10/28/23 History magnesium 200 mg tablet 400 mg PO DAILY 10/28/23 10/28/23 History multivitamin 1 tab PO DAILY 10/28/23 10/28/23 History tamsulosin 0.4 mg capsule 0.4 mg PO BID 10/28/23 10/28/23 History Allergies Allergy/AdvReac Type Severity Reaction Status Date / Time aspirin Allergy Hives Verified 10/28/23 18:52 Axson nut Allergy Anaphylaxis Verified 10/28/23 18:52 michael seed Allergy Anaphylaxis Verified 10/28/23 18:52 flaxseed Allergy Anaphylaxis Verified 10/28/23 18:52 hazelnut Allergy Anaphylaxis Verified 10/28/23 18:52 ibuprofen Allergy Hives Verified 10/28/23 18:52 pine nut Allergy Anaphylaxis Verified 10/28/23 18:52 sesame seed Allergy Anaphylaxis Verified 10/28/23 18:52 oxycodone AdvReac Vomiting Verified 10/28/23 18:52 Review of Systems Constitutional Comments: fatigued Cardiovascular Comments: w/o chest pain Respiratory Comments: dry cough Gastrointestinal Comments: nausea, vomiting, diarrhea Neurologic Comments: headache, frontal Psychiatric Comments: forgetful Exam Vital Signs (past 8 hours): - 10/29/23 07:00 10/29/23 08:22 10/29/23 08:24 Temperature 99.8 F H 99.6 F Pulse Rate 86 Respiratory Rate 20 Blood Pressure 152/84 H Pulse Oximetry 92 Oxygen Delivery Method Room Air Oxygen Flow Rate 0 Oxygen Delivery Method Room Air Oxygen Flow Rate 0 Narrative Exam Narrative: awake, alert, in no distress HENMT Other: not traumatic Eyes Other: eomi, reactive and equal pupils Neck Other: supple Resp Other: wheezy Cardio Other: RRR Neuro Other: w/o focal deficits Objective Labs 10/29/23 07:40 10/29/23 07:40 Labs: Laboratory Results - last 24 hr 10/28/23 10/28/23 10/28/23 18:51 18:57 19:00 WBC 15.6 H RBC 5.12 Hgb 15.3 Hct 42.8 MCV 83.7 MCH 29.8 MCHC 35.6 RDW 13.7 Plt Count 225 Neut % (Auto) 90.8 H Lymph % (Auto) 2.2 L [place] % (Auto) 6.9 Eos % (Auto) 0.0 L Baso % (Auto) 0.1 Neut # (Auto) 54370 H Lymph # (Auto) 300 L [place] # (Auto) 1100 H Eos # (Auto) 0 Baso # (Auto) 0 Total Counted Seg Neutrophils % Band Neutrophils % Lymphocytes % (Manual) Monocytes % (Manual) Neutrophils # (Manual) RBC Morphology Sodium 119 L* Potassium 3.6 Chloride 82 L Carbon Dioxide 26 BUN 19 Creatinine 0.78 Estimated GFR > 60 BUN/Creatinine Ratio 24.4 H Glucose 217 H Hemoglobin A1c Lactate 1.6 Calcium 8.9 Magnesium Total Bilirubin 1.7 H AST 86 H ALT 91 H Alkaline Phosphatase 78 Total Protein 7.2 Albumin 3.7 Globulin 3.5 Albumin/Globulin Ratio 1.1 Lipase 51 Procalcitonin 1.43 H Urine RBC Urine WBC Ur Squamous Epith Cells Urine Bacteria Ur Culture Indicated? Chlamy pneumoniae PCR Not detected Adenovirus (PCR) Not detected B.parapertussis DNA PCR Not detected Coronavirus OC43 (PCR) Not detected Coronavirus HKU1 (PCR) Not detected Coronavirus 229E (PCR) Not detected SARS-CoV-2 (PCR) Negative Coronavirus NL63 (PCR) Human Metapneumovir PCR Influenza A (RT-PCR) Influenza Type A (PCR) Influenza B (RT-PCR) Influenza Type B (PCR) M. pneumoniae (PCR) Parainfluenza 1 (PCR) Parainfluenza 2 (PCR) Parainfluenza 3 (PCR) Parainfluenza 4 (PCR) RSV (PCR) Entero/Rhino (PCR) 10/28/23 10/28/23 10/28/23 19:00 19:00 19:53 WBC RBC Hgb Hct MCV MCH MCHC RDW Plt Count Neut % (Auto) Lymph % (Auto) [place] % (Auto) Eos % (Auto) Baso % (Auto) Neut # (Auto) Lymph # (Auto) [place] # (Auto) Eos # (Auto) Baso # (Auto) Total Counted Seg Neutrophils % Band Neutrophils % Lymphocytes % (Manual) Monocytes % (Manual) Neutrophils # (Manual) RBC Morphology Sodium Potassium Chloride Carbon Dioxide BUN Creatinine Estimated GFR BUN/Creatinine Ratio Glucose Hemoglobin A1c Lactate Calcium Magnesium Total Bilirubin AST ALT Alkaline Phosphatase Total Protein Albumin Globulin Albumin/Globulin Ratio Lipase Procalcitonin Urine RBC 1-5/hpf Urine WBC 0-1/hpf Ur Squamous Epith Cells 0-1 /hpf Urine Bacteria Few (2-10) H Ur Culture Indicated? Cult not indicated Chlamy pneumoniae PCR Adenovirus (PCR) B.parapertussis DNA PCR Coronavirus OC43 (PCR) Coronavirus HKU1 (PCR) Coronavirus 229E (PCR) SARS-CoV-2 (PCR) Not detected Coronavirus NL63 (PCR) Not detected Human Metapneumovir PCR Not detected Influenza A (RT-PCR) Flu a negative Influenza Type A (PCR) Not detected Influenza B (RT-PCR) Flu b negative Influenza Type B (PCR) Not detected M. pneumoniae (PCR) Not detected Parainfluenza 1 (PCR) Not detected Parainfluenza 2 (PCR) Not detected Parainfluenza 3 (PCR) Not detected Parainfluenza 4 (PCR) Not detected RSV (PCR) Negative Not detected Entero/Rhino (PCR) Not detected 10/29/23 10/29/23 01:54 07:40 WBC 14.1 H RBC 4.92 Hgb 14.7 Hct 41.7 MCV 84.7 MCH 29.9 MCHC 35.3 RDW 13.7 Plt Count 204 Neut % (Auto) Not Reportable Lymph % (Auto) Not Reportable [place] % (Auto) Not Reportable Eos % (Auto) Not Reportable Baso % (Auto) Not Reportable Neut # (Auto) Lymph # (Auto) Not Reportable [place] # (Auto) Not Reportable Eos # (Auto) Baso # (Auto) Not Reportable Total Counted 100 Seg Neutrophils % 70.0 Band Neutrophils % 16.0 H Lymphocytes % (Manual) 7.0 L Monocytes % (Manual) 7.0 Neutrophils # (Manual) 57637 H RBC Morphology Normal morphology Sodium 121 L 122 L Potassium 3.3 L 3.9 Chloride 84 L 85 L Carbon Dioxide 27 30 BUN 17 19 Creatinine 0.87 0.83 Estimated GFR > 60 > 60 BUN/Creatinine Ratio 19.5 22.9 H Glucose 208 H 179 H Hemoglobin A1c 6.0 Lactate Calcium 7.9 L 8.3 L Magnesium 2.1 Total Bilirubin 1.3 AST 112 H ALT 118 H Alkaline Phosphatase 74 Total Protein 6.4 Albumin 3.2 L Globulin 3.2 Albumin/Globulin Ratio 1.0 Lipase Procalcitonin 1.49 H Urine RBC Urine WBC Ur Squamous Epith Cells Urine Bacteria Ur Culture Indicated? Chlamy pneumoniae PCR Adenovirus (PCR) B.parapertussis DNA PCR Coronavirus OC43 (PCR) Coronavirus HKU1 (PCR) Coronavirus 229E (PCR) SARS-CoV-2 (PCR) Coronavirus NL63 (PCR) Human Metapneumovir PCR Influenza A (RT-PCR) Influenza Type A (PCR) Influenza B (RT-PCR) Influenza Type B (PCR) M. pneumoniae (PCR) Parainfluenza 1 (PCR) Parainfluenza 2 (PCR) Parainfluenza 3 (PCR) Parainfluenza 4 (PCR) RSV (PCR) Entero/Rhino (PCR) Assessment & Plan Assessment and plan (1) Pneumonia: Status: Acute Plan: acute hypoxic resp failure 2/2 severe CAP CXR with dense bilateral consolidations, RR 30's, encephalopathic, hypoxic rocephin plus levaquin O2 now weaned off obtain CT chest to further characterize dense consolidations (2) Hyponatremia: Status: Acute Plan: Acute, had NS in ED BMP monitored slow correction hypovolemic - poor oral intake, nausea, vomiting improving with IVF (3) HTN (hypertension): Status: Acute Plan: Losartan and Norvasc restarted (4) Enlarged prostate: Status: Acute Plan: Flomax / Finasteride (5) Depression: Status: Acute Plan: Lexapro Plan Dispo: Pending improvement in CAP. 2-3 days. Quality VTE Deep Vein Thrombosis/Pulmonary Embolism Present on Admission: No
[2023-10-29 11:21] LABS: Adenovirus F 40/41 Not Detected (Not Detect); Astrovirus Not Detected (Not Detect); Campylobacter Not Detected (Not Detect); Clostridium difficile toxin AB Not Detected (Not Detect); Cryptosporidium Not Detected (Not Detect); Cyclospora cayetanensis Not Detected (Not Detect); Entamoeba histolytica Not Detected (Not Detect); Enteroaggregative E.coli Not Detected (Not Detect); Enteropathogenic E.coli Not Detected (Not Detect); Enterotoxigenic E.coli It/st Not Detected (Not Detect); Giardia lamblia Not Detected (Not Detect); Norovirus GI/GII Not Detected (Not Detect); Plesiomonsa shigelloides Not Detected (Not Detect); Rotavirus A Not Detected (Not Detect); Salmonella Not Detected (Not Detect); Sapovirus Not Detected (Not Detect); Shiga-like toxin-prod E.coli Not Detected (Not Detect); Shigella/Enteroinvasive E.coli Not Detected (Not Detect); Vibrio Not Detected (Not Detect); Vibrio cholerae Not Detected (Not Detect); Yersinia enterocolitica Not Detected (Not Detect)
[2023-10-29] MEDS: LOSARTAN 50 MG TABLET 100 MG PO (11:36)
[2023-10-29] MEDS: AMLODIPINE 5 MG TABLET 10 MG PO (11:36)
--- NOTE | 2023-10-29 12:18 | CM.DANOTE ---
Patient is a 63 yo male who was admitted on 10/28/23 for N/V/D/GLF. Pt has [employer] for insurance and his PCP is Garrick Desai. EMR was reviewed. Per MD, pt with hx of diabetes and admitted after GLF and weakness and dx with severe pneumonia and hyponatremia. Pt to get a GI panel and CT scan and currently on room air. PT ordered and pending. Per OT, pt with some orthostatics and below baseline and having some slight confusion and currently recommend home with spouse assist pending progress. SW attempted to meet bedside with pt and spouse but pt sitting bedside and getting ready to go down to CT scan but starting to have increased orthostatics and nausea and SW grabbed RN. Spouse able to confirm that they live in [place] and both are active and independent at baseline. 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 Spouse states this is quite far from his independent baseline and began feeling sick with poor appetite about a week ago. Pt has no hx of SNF or HH and spouse anticipates pt discharging home and she can assist as needed pending progress. Plan: SW to follow closely for CT scan results and PT eval to r/o HH and any further identified discharge planning needs. MD anticipates another couple days and should start to improve and discharge home when stable. MANUELITO Alvarez Discharge Planning/Care Management CM Discharge Assessment Start: 10/29/23 12:16 Freq: Status: Active Protocol: Document 10/29/23 12:17 BF (Rec: 10/29/23 12:18 BF [id number]) Discharge Planning Assessment Assigned Front Attendant MANUELITO Miller DPOA/Assigned Designee Name informally spouse Sanaz Contact Information [phone] Advance Directives? No Advance Directives on File No History Provided By Patient,Significant Other, Medical Record Has Patient been admitted in last 30 No days? Prior Living Arrangements House Household Members spouse Type of transporation used prior to Drives own vehicle admit Independent with ADL's Yes Is patient alert and oriented? Yes Caregiver for Another No Comment r/o HH pending PT eval Barriers to Discharge No Discharge Plan Home Transportation Arrangement spouse bedside and plans to provide transport Referrals Initiated None needed Additional Comment r/o HH closer to d/c Whiteboard Updated in Patient Room with Yes name and ext. # of Front Attendant Review Status In Process Please Provide Date Initial DC 10/29/23 Assessment Was Performed Next Review Type Continued Stay Review
[2023-10-29 14:24] LABS: Sodium 122 mmol/L (137-145)
--- NOTE | 2023-10-29 15:30 | PT.IPTN ---
Current Diagnoses Hypo-osmolality and hyponatremia (10/28/23) Depression, unspecified (10/28/23) Essential (primary) hypertension (10/28/23) Pneumonia, unspecified organism (10/28/23) Benign prostatic hyperplasia without lower urinary tract symptoms (10/28/23) Physical Therapy Treatment Note M3 PT-IP Subjective Start: 10/29/23 16:32 Freq: NEEDED Status: Active Protocol: Document 10/29/23 15:30 AB (Rec: 10/29/23 16:35 AB [id number]) Subjective Physical Therapy Visit Type Type Patient Refusal Notes PT eval order received. EMR reviewed. checked on pt and pt refused PT. stated that he is still feeling dizzy and nauseated and will not be able to move and get up from the bed. obtained PLOF and home set up. will f/u.
--- NOTE | 2023-10-29 18:30 | P.PN_ITS ---
Subjective Subjective Interval history: Patient feeling a bit better. Notes a dry cough. CT chest shows severe PNA, with dense consolidations in bilateral lungs most concentrated at [place]. No masses. GI panel negative. Weaned off O2. Exam Vital Signs (past 8 hours): - 10/29/23 11:36 10/29/23 11:40 10/29/23 18:00 Temperature 97.6 F 99.9 F H Pulse Rate 72 71 93 H Respiratory Rate 16 19 Blood Pressure 120/79 120/72 134/78 Pulse Oximetry 91 91 Oxygen Flow Rate 0 0 10/29/23 18:29 Temperature 99.9 F H Pulse Rate Respiratory Rate Blood Pressure Pulse Oximetry Oxygen Flow Rate Oxygen Delivery Method Room Air Oxygen Flow Rate 0 Narrative Exam Narrative: awake, alert, in no distress HENMT Other: not traumatic Eyes Other: eomi, reactive and equal pupils Neck Other: supple Resp Other: coarse breath sounds bilaterally Cardio Other: RRR Neuro Other: w/o focal deficits Objective Labs 10/29/23 07:40 10/29/23 14:11 Labs: Laboratory Results - last 24 hr 10/28/23 10/28/23 10/28/23 18:51 18:57 19:00 WBC 15.6 H RBC 5.12 Hgb 15.3 Hct 42.8 MCV 83.7 MCH 29.8 MCHC 35.6 RDW 13.7 Plt Count 225 Neut % (Auto) 90.8 H Lymph % (Auto) 2.2 L [place] % (Auto) 6.9 Eos % (Auto) 0.0 L Baso % (Auto) 0.1 Neut # (Auto) 16995 H Lymph # (Auto) 300 L [place] # (Auto) 1100 H Eos # (Auto) 0 Baso # (Auto) 0 Total Counted Seg Neutrophils % Band Neutrophils % Lymphocytes % (Manual) Monocytes % (Manual) Neutrophils # (Manual) RBC Morphology Sodium 119 L* Potassium 3.6 Chloride 82 L Carbon Dioxide 26 BUN 19 Creatinine 0.78 Estimated GFR > 60 BUN/Creatinine Ratio 24.4 H Glucose 217 H Hemoglobin A1c Lactate 1.6 Calcium 8.9 Magnesium Total Bilirubin 1.7 H AST 86 H ALT 91 H Alkaline Phosphatase 78 Total Protein 7.2 Albumin 3.7 Globulin 3.5 Albumin/Globulin Ratio 1.1 Lipase 51 Procalcitonin 1.43 H Urine RBC Urine WBC Ur Squamous Epith Cells Urine Bacteria Ur Culture Indicated? Stl C. cayetanensis PCR Stool Rotavirus (PCR) Stool Adenovirus (PCR) Stool Astrovirus (PCR) Stool Cryptosporidium PCR Stl E.coli Shiga Tox PCR St Sh/Enteroin Ecoli PCR Stl Enterotoxigenic E PCR Stool EPEC (PCR) Stl E. histolytica PCR Stool Giardia Lamblia PCR Stool Sapovirus (PCR) Stl P. shigelloides PCR St Y.enterocolitica PCR Stool Vibrio (PCR) Stl Vibrio cholerae PCR Stl Enteroaggr Ecoli PCR Stl Norovirus GI/GII PCR Chlamy pneumoniae PCR Not detected Adenovirus (PCR) Not detected B.parapertussis DNA PCR Not detected Campylobacter (PCR) C. difficile Tox (PCR) Coronavirus OC43 (PCR) Not detected Coronavirus HKU1 (PCR) Not detected Coronavirus 229E (PCR) Not detected SARS-CoV-2 (PCR) Negative Coronavirus NL63 (PCR) Human Metapneumovir PCR Influenza A (RT-PCR) Influenza Type A (PCR) Influenza B (RT-PCR) Influenza Type B (PCR) M. pneumoniae (PCR) Parainfluenza 1 (PCR) Parainfluenza 2 (PCR) Parainfluenza 3 (PCR) Parainfluenza 4 (PCR) RSV (PCR) Entero/Rhino (PCR) Salmonella (PCR) 10/28/23 10/28/23 10/28/23 19:00 19:00 19:53 WBC RBC Hgb Hct MCV MCH MCHC RDW Plt Count Neut % (Auto) Lymph % (Auto) [place] % (Auto) Eos % (Auto) Baso % (Auto) Neut # (Auto) Lymph # (Auto) [place] # (Auto) Eos # (Auto) Baso # (Auto) Total Counted Seg Neutrophils % Band Neutrophils % Lymphocytes % (Manual) Monocytes % (Manual) Neutrophils # (Manual) RBC Morphology Sodium Potassium Chloride Carbon Dioxide BUN Creatinine Estimated GFR BUN/Creatinine Ratio Glucose Hemoglobin A1c Lactate Calcium Magnesium Total Bilirubin AST ALT Alkaline Phosphatase Total Protein Albumin Globulin Albumin/Globulin Ratio Lipase Procalcitonin Urine RBC 1-5/hpf Urine WBC 0-1/hpf Ur Squamous Epith Cells 0-1 /hpf Urine Bacteria Few (2-10) H Ur Culture Indicated? Cult not indicated Stl C. cayetanensis PCR Stool Rotavirus (PCR) Stool Adenovirus (PCR) Stool Astrovirus (PCR) Stool Cryptosporidium PCR Stl E.coli Shiga Tox PCR St Sh/Enteroin Ecoli PCR Stl Enterotoxigenic E PCR Stool EPEC (PCR) Stl E. histolytica PCR Stool Giardia [place] PCR Stool Sapovirus (PCR) Stl P. shigelloides PCR St Y.enterocolitica PCR Stool Vibrio (PCR) Stl Vibrio cholerae PCR Stl Enteroaggr Ecoli PCR Stl Norovirus GI/GII PCR Chlamy pneumoniae PCR Adenovirus (PCR) B.parapertussis DNA PCR Campylobacter (PCR) C. difficile Tox (PCR) Coronavirus OC43 (PCR) Coronavirus HKU1 (PCR) Coronavirus 229E (PCR) SARS-CoV-2 (PCR) Not detected Coronavirus NL63 (PCR) Not detected Human Metapneumovir PCR Not detected Influenza A (RT-PCR) Flu a negative Influenza Type A (PCR) Not detected Influenza B (RT-PCR) Flu b negative Influenza Type B (PCR) Not detected M. pneumoniae (PCR) Not detected Parainfluenza 1 (PCR) Not detected Parainfluenza 2 (PCR) Not detected Parainfluenza 3 (PCR) Not detected Parainfluenza 4 (PCR) Not detected RSV (PCR) Negative Not detected Entero/Rhino (PCR) Not detected Salmonella (PCR) 10/29/23 10/29/23 10/29/23 01:54 07:40 09:12 WBC 14.1 H RBC 4.92 Hgb 14.7 Hct 41.7 MCV 84.7 MCH 29.9 MCHC 35.3 RDW 13.7 Plt Count 204 Neut % (Auto) Not Reportable Lymph % (Auto) Not Reportable [place] % (Auto) Not Reportable Eos % (Auto) Not Reportable Baso % (Auto) Not Reportable Neut # (Auto) Lymph # (Auto) Not Reportable [place] # (Auto) Not Reportable Eos # (Auto) Baso # (Auto) Not Reportable Total Counted 100 Seg Neutrophils % 70.0 Band Neutrophils % 16.0 H Lymphocytes % (Manual) 7.0 L Monocytes % (Manual) 7.0 Neutrophils # (Manual) 37272 H RBC Morphology Normal morphology Sodium 121 L 122 L Potassium 3.3 L 3.9 Chloride 84 L 85 L Carbon Dioxide 27 30 BUN 17 19 Creatinine 0.87 0.83 Estimated GFR > 60 > 60 BUN/Creatinine Ratio 19.5 22.9 H Glucose 208 H 179 H Hemoglobin A1c 6.0 Lactate Calcium 7.9 L 8.3 L Magnesium 2.1 Total Bilirubin 1.3 AST 112 H ALT 118 H Alkaline Phosphatase 74 Total Protein 6.4 Albumin 3.2 L Globulin 3.2 Albumin/Globulin Ratio 1.0 Lipase Procalcitonin 1.49 H Urine RBC Urine WBC Ur Squamous Epith Cells Urine Bacteria Ur Culture Indicated? Stl C. cayetanensis PCR Not detected Stool Rotavirus (PCR) Not detected Stool Adenovirus (PCR) Not detected Stool Astrovirus (PCR) Not detected Stool Cryptosporidium PCR Not detected Stl E.coli Shiga Tox PCR Not detected St Sh/Enteroin Ecoli PCR Not detected Stl Enterotoxigenic E PCR Not detected Stool EPEC (PCR) Not detected Stl E. histolytica PCR Not detected Stool Giardia Lamblia PCR Not detected Stool Sapovirus (PCR) Not detected Stl P. shigelloides PCR Not detected St Y.enterocolitica PCR Not detected Stool Vibrio (PCR) Not detected Stl Vibrio cholerae PCR Not detected Stl Enteroaggr Ecoli PCR Not detected Stl Norovirus GI/GII PCR Not detected Chlamy pneumoniae PCR Adenovirus (PCR) B.parapertussis DNA PCR Campylobacter (PCR) Not detected C. difficile Tox (PCR) Not detected Coronavirus OC43 (PCR) Coronavirus HKU1 (PCR) Coronavirus 229E (PCR) SARS-CoV-2 (PCR) Coronavirus NL63 (PCR) Human Metapneumovir PCR Influenza A (RT-PCR) Influenza Type A (PCR) Influenza B (RT-PCR) Influenza Type B (PCR) M. pneumoniae (PCR) Parainfluenza 1 (PCR) Parainfluenza 2 (PCR) Parainfluenza 3 (PCR) Parainfluenza 4 (PCR) RSV (PCR) Entero/Rhino (PCR) Salmonella (PCR) Not detected 10/29/23 14:11 WBC RBC Hgb Hct MCV MCH MCHC RDW Plt Count Neut % (Auto) Lymph % (Auto) [place] % (Auto) Eos % (Auto) Baso % (Auto) Neut # (Auto) Lymph # (Auto) [place] # (Auto) Eos # (Auto) Baso # (Auto) Total Counted Seg Neutrophils % Band Neutrophils % Lymphocytes % (Manual) Monocytes % (Manual) Neutrophils # (Manual) RBC Morphology Sodium 122 L Potassium Chloride Carbon Dioxide BUN Creatinine Estimated GFR BUN/Creatinine Ratio Glucose Hemoglobin A1c Lactate Calcium Magnesium Total Bilirubin AST ALT Alkaline Phosphatase Total Protein Albumin Globulin Albumin/Globulin Ratio Lipase Procalcitonin Urine RBC Urine WBC Ur Squamous Epith Cells Urine Bacteria Ur Culture Indicated? Stl C. cayetanensis PCR Stool Rotavirus (PCR) Stool Adenovirus (PCR) Stool Astrovirus (PCR) Stool Cryptosporidium PCR Stl E.coli Shiga Tox PCR St Sh/Enteroin Ecoli PCR Stl Enterotoxigenic E PCR Stool EPEC (PCR) Stl E. histolytica PCR Stool Giardia [place]lia PCR Stool Sapovirus (PCR) Stl P. shigelloides PCR St Y.enterocolitica PCR Stool Vibrio (PCR) Stl Vibrio cholerae PCR Stl Enteroaggr Ecoli PCR Stl Norovirus GI/GII PCR Chlamy pneumoniae PCR Adenovirus (PCR) B.parapertussis DNA PCR Campylobacter (PCR) C. difficile Tox (PCR) Coronavirus OC43 (PCR) Coronavirus HKU1 (PCR) Coronavirus 229E (PCR) SARS-CoV-2 (PCR) Coronavirus NL63 (PCR) Human Metapneumovir PCR Influenza A (RT-PCR) Influenza Type A (PCR) Influenza B (RT-PCR) Influenza Type B (PCR) M. pneumoniae (PCR) Parainfluenza 1 (PCR) Parainfluenza 2 (PCR) Parainfluenza 3 (PCR) Parainfluenza 4 (PCR) RSV (PCR) Entero/Rhino (PCR) Salmonella (PCR) [facility] Medical History (Updated 10/29/23 @ 08:49 by Honorio Holcomb MD) Enlarged prostate HTN (hypertension) Social History household members: spouse Smoking Status: Never smoker alcohol intake: current Assessment & Plan Assessment and plan (1) Pneumonia: Status: Acute Plan: acute hypoxic resp failure 2/2 severe CAP CXR with dense bilateral consolidations, RR 30's, encephalopathic, hypoxic rocephin plus levaquin O2 now weaned off obtain CT chest to further characterize dense consolidations (2) Hyponatremia: Status: Acute Plan: Acute, had NS in ED BMP monitored slow correction hypovolemic - poor oral intake, nausea, vomiting improving with IVF (3) HTN (hypertension): Status: Acute Plan: Losartan and Norvasc restarted (4) Enlarged prostate: Status: Acute Plan: Flomax / Finasteride (5) Depression: Status: Acute Plan: Lexapro Plan Dispo: Pending improvement in CAP. 2-3 days. Quality VTE Deep Vein Thrombosis/Pulmonary Embolism Present on Admission: No
[2023-10-29] MEDS: ESCITALOPRAM 10 MG TABLET PO (20:28)
[2023-10-29] MEDS: cefTRIAXone 2,000 MG in SODIUM CHLORIDE 0.9% 100 ML 200 MG IV (21:45)
[2023-10-29] MEDS: SODIUM CHLORIDE 0.9% 1,000 ML 100 ML IV (23:15)
[2023-10-29 23:50] LABS: Sodium 124 mmol/L (137-145)
[2023-10-30] VITALS: BP 119/62; PULSE 71; RESP 20; TEMP 36.2; O2SAT 92
[2023-10-30] MEDS: ACETAMINOPHEN 325 MG TABLET 650 MG PO ×4 (00:49→16:56)
--- NOTE | 2023-10-30 02:32 | CM.MNRNOTE ---
C/O bladder discomfort, bladder scanned him only 269 cc noted. Will monitor.
[2023-10-30] MEDS: ONDANSETRON 4 MG/2 ML INJ IV ×2 (04:43→23:20)
[2023-10-30 05:10] LABS: Sodium 124 mmol/L (137-145)
[2023-10-30 05:30] LABS: Procalcitonin 1.43 ng/mL (<0.5)
[2023-10-30 06:00] VITALS: BP 124/72; PULSE 63; RESP 24; TEMP 36.6; O2SAT 91
[2023-10-30 07:44] LABS: Hematocrit 39.2 % (41-53); Hemoglobin 13.8 g/dL (13.5-17.5); Mean Corpuscular HGB Conc 35.1 % (30-36); Mean Corpuscular Hemoglobin 30.1 PG (26-34); Mean Corpuscular Volume 85.8 fL (80-100); Platelet Count 186 X10^3/uL (150-400); Red Blood Cell Count 4.57 X10^6/uL (4.5-5.9); Red Cell Distribution Width 13.9 % (11.6-14.8); White Blood Cell Count 11.5 X10^3/uL (4.5-11.0)
[2023-10-30 07:45] LABS: Add Manual Diff / Slide Review YES
[2023-10-30] MEDS: levoFLOXacin 750 MG/150 ML PIGGYBACK 100 MG IV (07:48)
[2023-10-30 07:51] LABS: Alanine Aminotransferase 153 IU/L (<50); Albumin 2.8 g/dL (3.5-5.0); Albumin Globulin Ratio 0.9 (1.0-2.8); Alkaline Phosphatase 70 U/L (38-126); Aspartate Aminotransferase 113 IU/L (17-59); BUN Creatinine Ratio 21.1 (6-22); Bilirubin Total 0.8 mg/dL (0.2-1.3); Blood Urea Nitrogen 19 mg/dL (9-20); Calcium 8.3 mg/dL (8.4-10.2); Carbon Dioxide 30 mmol/L (22-32); Chloride 91 mmol/L (98-107); Estimated Glomerular Filt Rate > 60 mL/min (>60); Glucose 136 mg/dL (80-110); HEMOLYSIS < 15 (0-50); Potassium 3.6 mmol/L (3.4-5.1); Sodium 126 mmol/L (137-145); Total Protein 5.8 g/dL (6.3-8.2)
[2023-10-30 07:58] LABS: Neutrophils Absolute Manual 9775 /uL (3000-5900); RBC Morphology Normal Morphology; Total Cells Counted 100
[2023-10-30 08:06] VITALS: BP 140/79; PULSE 72; RESP 19; TEMP 36.9; O2SAT 93
[2023-10-30] MEDS: ENOXAPARIN 40 MG/0.4 ML SYRINGE SUBCUT (08:31)
[2023-10-30] MEDS: INSULIN GLARGINE 100 UNIT/ML 3ML PEN 10 UNIT SUBCUT (08:31)
[2023-10-30 08:32] VITALS: BP 140/79; PULSE 72
[2023-10-30] MEDS: FINASTERIDE 5 MG TABLET PO (08:32)
[2023-10-30] MEDS: TAMSULOSIN 0.4 MG CAPSULE PO ×2 (08:32→20:36)
[2023-10-30] MEDS: MAGNESIUM OXIDE 400 MG TABLET PO (08:32)
[2023-10-30] MEDS: AMLODIPINE 5 MG TABLET 10 MG PO (08:32)
[2023-10-30] MEDS: LOSARTAN 50 MG TABLET 100 MG PO (08:32)
[2023-10-30] MEDS: SODIUM CHLORIDE 0.9% 1,000 ML 100 ML IV ×2 (10:11→20:39)
[2023-10-30] MEDS: MECLIZINE HCL 12.5 MG TABLET 25 MG PO ×2 (11:08→23:25)
[2023-10-30] MEDS: BACLOFEN 10 MG TABLET PO ×3 (11:09→20:36)
[2023-10-30] MEDS: PANTOPRAZOLE DR 20 MG TABLET 40 MG PO (11:11)
--- NOTE | 2023-10-30 11:15 | PT.IIE ---
Current Diagnoses Hypo-osmolality and hyponatremia (10/28/23) Depression, unspecified (10/28/23) Essential (primary) hypertension (10/28/23) Pneumonia, unspecified organism (10/28/23) Benign prostatic hyperplasia without lower urinary tract symptoms (10/28/23) Medical History (Last Updated 10/29/23 @ 08:49 by Honorio Holcomb MD) Enlarged prostate HTN (hypertension) Physical Therapy Inpatient Evaluation/Re-Eval M1 PT/OT-IP Prior Functional Status Start: 10/29/23 16:32 Freq: NEEDED Status: Active Protocol: Document 10/30/23 10:40 MB (Rec: 10/30/23 11:15 MB [id number]) Medical Review Prior Functional Status Medical History Reviewed Yes Communication able to make needs knwon Mobility and Gait pt stated that he was independent with all mobilities and ambulation without AD Social History Household Members spouse Living Arrangements House Number of Floors (Floors) Two Floors Number of Stairs To Enter/Railing? 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 M2 PT-IP Current Condition Start: 10/29/23 16:32 Freq: NEEDED Status: Active Protocol: Document 10/30/23 10:40 MB (Rec: 10/30/23 11:15 MB [id number]) Physical Therapy Current Condition Current Condition Evaluation Date 10/30/23 Treatment Diagnosis N/V, fall, pneumonia M3 PT-IP Subjective Start: 10/29/23 16:32 Freq: NEEDED Status: Active Protocol: Document 10/30/23 10:40 MB (Rec: 10/30/23 11:15 MB [id number]) Subjective Physical Therapy Visit Type Type Initial Evaluation Visit Start Time 10:40 Visit Stop Time 11:00 Total Visit Minutes 20 Physical Therapy Visit Comments Patient Comments I don't feel steady. I'm a big pawel. M4 PT-IP Mobility and Gait Start: 10/29/23 16:32 Freq: NEEDED Status: Active Protocol: Document 10/30/23 10:40 MB (Rec: 10/30/23 11:15 MB [id number]) PT-Bed Mobility Assessment Supine to Sit Supine to Sit Standby Assistance,1 Person Assistance,Head of Bed Elevated,Bedrails Sit to Supine Sit to Supine Standby Assistance,1 Person Assistance,Head of Bed Elevated,Bedrails Scooting Scooting to Edge of Bed Standby Assistance PT-Transfer Assessment Sit to and From Stand Sit to and from Stand Contact Guard Assistance,1 Person Assistance,Use of Upper Extremities Equipment Transfer Assistive Device Gait Belt,Front Wheeled Walker Orthotic/Prosthetic Devices or Brace: No Transfers Transfer Destination Bed,Chair Transfer Technique Stepping Transfer Ability Level of Assist Contact Guard Assistance,1 Person Assistance,Use of Upper Extremities Comments Mobility Comments Pt with some fearfulness d/t not feeling well and maybe a little light-headed. Pt is receiving IV fluids PT defers checking orthostatics in favor of vestibular screen. Gait Assessment Gait Gait Assistance Required: Contact Guard Assist,1 Person Assist Distance (Feet) 70 Able to Maintain Weight Bearing Status Yes During Gait Assistive Devices Assistive Device Gait Belt,Front Wheeled Walker Orthotic/Prosthetic Devices or Brace: No Gait Deviations General Gait Pattern Decreased Stride Length, Decreased Feet Clearance,Wide Based Gait Factors Limiting Gait Function Factors Limiting Gait Function Decreased Activity Tolerance, Poor Balance,Poor Safety Awareness Comments Gait Comments Pt's hesistates with gait and has slow rocío. He gait trains with RW and PT provides CGA and manages IV pole, 70'x2 PT-Balance Assessment Sitting Balance and Reactions Static Sitting Balance Ability Good Dynamic Sitting Balance Ability Good Standing Balance and Reactions Static Standing Balance Ability Fair Dynamic Standing Balance Ability Fair Device Used RW M5 PT-IP Objective Assessments Start: 10/29/23 16:32 Freq: NEEDED Status: Active Protocol: Document 10/30/23 10:40 MB (Rec: 10/30/23 11:15 MB [id number]) Orientation Orientation/Cognition Level of Alertness Alert Orientation Name,Age,Birthday,Month,Year, Place,Situation Language Function Ability No Deficits Noted Safety Awareness Understands Safety Issues Memory Description No Deficits Noted Gross Range of Motion Upper Extremity ROM Assessment Within Functional Limits Lower Extremity ROM Assessment Within Functional Limits Strength Upper Extremity Strength Assessment Within Functional Limits Lower Extremity Strength Assessment Within Functional Limits Other Assessments Other Other Assessments Pt with normal eye ROM and normal end-range nystagmus with eye ROM testing. No spontaneous nystagmus. No acute or subacute hearing change. Pt reports history of left stapes surgery and decreased left ear hearing. Pt with hiccups during assessment that improve with upright posture with gait. Pt with forward flexed posture overall. No dizziness with rolling in the bed. M7 PT-IP Assessment and Plan Start: 10/29/23 16:32 Freq: NEEDED Status: Active Protocol: Document 10/30/23 10:40 MB (Rec: 10/30/23 11:15 MB [id number]) PT Summary Assessment and Plan Potential Rehabilitation Potential Good Status of Condition at Evaluation Evolving Summary Impairments Balance,Bed Mobility,Transfers ,Gait,Activity Tolerance Progress Towards Goals Progressing Toward Goals Assessment Summary Pt is a 63 y/o man who is still feeling poorly and who has hiccups and some light- headedness and decreased confidence with gait. Orthostatics may be checked with nsg or next treatment date: pt is getting IV fluids and PT prioritizes vestibular screen today after speaking with PT and MD. PT does not favor acute or subacute vestibular problem but pt may likely have chronic vestibular issues after stapes surgery and left hearing changes. His states that whenever he gets a cold or sick, he does get dizzy. Pt rides a motorcycle from [place] to the [facility] to [facility] and PT encourages him to consider safer communiting options for the timebeing. He retires in two months. He may benefit from HH vs OPPT: OPPT for vestibular and balance therapy . Goals Bed Mobility Goal Independent Transfer Goal Independent,Front Wheeled Walker Gait Goal Independent,Front Wheel Walker Gait Distance 150 Other Goals Pt will ascend and descend 17 steps with two rails and no more than superv assistance to allow safe home entry. Days to Meet Goals 4 Frequency of Treatment Frequency Of Treatment Once a Day Treatment Plan Physical Therapy Treatment Plan Bed Mobility Training,Transfer Training,Gait Training, Therapeutic Exercise,Balance Retraining,Neuromuscular Re-ed Other Recommendations and Next Treatment Consider checking orthostatics Focus , stair training and obtain RW for pt before d/c. Weight Bearing Status Weight Bearing Status Full Weight Bearing Recommendations To Nursing Amount of Assist Needed 1 Person Assist Discharge Recommendations PT Discharge Recommendations Home with 24/7 Assist Available,Outpatient PT Other Discharge Recommendations Vestibular/balance OPPT Equipment Needed for Home Before RW Discharge Transportation Needs at Discharge Private Vehicle
--- NOTE | 2023-10-30 12:13 | CM.DPNOTE ---
DCP Note MAINTENANCE DIRECTOR reviewed EMR. Per provider, likely here another few days due to pneumonia. PT/OT rec home with assistance. MAINTENANCE DIRECTOR entered room and introduced self and role. Pt sitting up in chair and accompanied by spouse at bedside. Pt confirms still feeling bad. Spouse confirms pt does not normally use a walker but was using a walker with PT. Spouse working on borrowing a walker and shower seat from some friends. Spouse reports interested in walker for him just in case at discharge if he continues to mobilize like he is now, but agreeable to holding off on it for now to see if he's mobilizing closer to baseline at ok or if can obtain walker from friend. Deny any other CM resource needs at this time. Plan: home with spouse when medically stable. Consider an order for walker for home use if appropriate. CM team will continue to follow as needed. MANUELITO Estrada
--- NOTE | 2023-10-30 12:43 | PT-IP ANOTE ---
checked on pt and pt refuse PT. stated that he is still not feeling well and c/o dizziness and nausea and refuse to get out of the bed. asked pt if willing for him for PT to check back later and pt agreed. another PT Maritza stated that hospitalist wants a vestibular assessment on pt. PT maritza took over eval for vestibular assessment.
[2023-10-30 14:00] VITALS: BP 138/78; PULSE 69; RESP 20; TEMP 36.5; O2SAT 96
[2023-10-30 14:23] LABS: Sodium 126 mmol/L (137-145)
--- NOTE | 2023-10-30 14:42 | P.PN_ITS ---
Subjective Subjective Interval history: Patient having terrible hiccups and some vertigo today. PT to evaluate. Exam Vital Signs (past 8 hours): - 10/30/23 07:00 10/30/23 08:06 10/30/23 08:32 Temperature 98.4 F Pulse Rate 72 72 Respiratory Rate 19 Blood Pressure 140/79 140/79 Pulse Oximetry 93 Oxygen Delivery Method Room Air Oxygen Flow Rate 0 Oxygen Delivery Method Room Air Oxygen Flow Rate 0 Narrative Exam Narrative: awake, alert, ill-appearing, hiccupping HENMT Other: not traumatic Eyes Other: eomi, reactive and equal pupils Neck Other: supple Resp Other: coarse breath sounds bilaterally L>R Cardio Other: RRR Neuro Other: w/o focal deficits Objective Labs 10/30/23 07:35 10/30/23 14:08 Labs: Laboratory Results - last 24 hr 10/29/23 10/30/23 10/30/23 23:37 04:29 07:35 WBC 11.5 H RBC 4.57 Hgb 13.8 Hct 39.2 L MCV 85.8 MCH 30.1 MCHC 35.1 RDW 13.9 Plt Count 186 Neut % (Auto) Not Reportable Lymph % (Auto) Not Reportable Free[place] % (Auto) Not Reportable Eos % (Auto) Not Reportable Baso % (Auto) Not Reportable Lymph # (Auto) Not Reportable [place] # (Auto) Not Reportable Baso # (Auto) Not Reportable Total Counted 100 Seg Neutrophils % 72.0 H Band Neutrophils % 13.0 H Lymphocytes % (Manual) 5.0 L Monocytes % (Manual) 10.0 Neutrophils # (Manual) 9775 H RBC Morphology Normal morphology Sodium 124 L 124 L 126 L Potassium 3.6 Chloride 91 L Carbon Dioxide 30 BUN 19 Creatinine 0.90 Estimated GFR > 60 BUN/Creatinine Ratio 21.1 Glucose 136 H Calcium 8.3 L Total Bilirubin 0.8 AST 113 H ALT 153 H Alkaline Phosphatase 70 Total Protein 5.8 L Albumin 2.8 L Globulin 3.0 Albumin/Globulin Ratio 0.9 L Procalcitonin 1.43 H 10/30/23 14:08 WBC RBC Hgb Hct MCV MCH MCHC RDW Plt Count Neut % (Auto) Lymph % (Auto) Free[place] % (Auto) Eos % (Auto) Baso % (Auto) Lymph # (Auto) Free[place] # (Auto) Baso # (Auto) Total Counted Seg Neutrophils % Band Neutrophils % Lymphocytes % (Manual) Monocytes % (Manual) Neutrophils # (Manual) RBC Morphology Sodium 126 L Potassium Chloride Carbon Dioxide BUN Creatinine Estimated GFR BUN/Creatinine Ratio Glucose Calcium Total Bilirubin AST ALT Alkaline Phosphatase Total Protein Albumin Globulin Albumin/Globulin Ratio Procalcitonin [facility] Medical History (Updated 10/30/23 @ 15:01 by Pawel Murray DO) Enlarged prostate HTN (hypertension) Social History household members: spouse Smoking Status: Never smoker alcohol intake: current Assessment & Plan Assessment and plan (1) Pneumonia: Status: Acute Plan: acute hypoxic resp failure 2/2 severe CAP CXR with dense bilateral consolidations, RR 30's, encephalopathic, hypoxic rocephin plus levaquin O2 now weaned off obtain CT chest to further characterize dense consolidations (2) Hyponatremia: Status: Acute Plan: Acute, had NS in ED BMP monitored slow correction hypovolemic - poor oral intake, nausea, vomiting improving with IVF (3) HTN (hypertension): Status: Acute Plan: Losartan and Norvasc restarted (4) Enlarged prostate: Status: Acute Plan: Flomax / Finasteride (5) Depression: Status: Acute Plan: Lexapro (6) Vertigo: Status: Acute Plan: likely vestibular meclizine PRN baclofen for hiccups PT eval Plan Dispo: Pending improvement in CAP. 2 days. Quality VTE Deep Vein Thrombosis/Pulmonary Embolism Present on Admission: No
[2023-10-30] MEDS: INSULIN LISPRO 100 UNIT/ML 3ML VIAL SUBCUT ×2 (16:56→20:37)
[2023-10-30] MEDS: ESCITALOPRAM 10 MG TABLET PO (20:36)
[2023-10-30] MEDS: cefTRIAXone 2,000 MG in SODIUM CHLORIDE 0.9% 100 ML 200 MG IV (22:03)
[2023-10-31] VITALS: BP 141/78; PULSE 75; RESP 17; TEMP 36.3; O2SAT 92
[2023-10-31] MEDS: ONDANSETRON 4 MG/2 ML INJ IV (04:23)
[2023-10-31 04:49] LABS: Add Manual Diff / Slide Review NO; Basophils Absolute Auto 0 /uL (0-100); Basophils Percent Auto 0.2 % (0-2); Eosinophils Absolute Auto 100 /uL (0-450); Hematocrit 38.5 % (41-53); Hemoglobin 13.6 g/dL (13.5-17.5); Lymphocytes Absolute Auto 900 /uL (1100-4500); Lymphocytes Percent Auto 8.9 % (25-40); Mean Corpuscular HGB Conc 35.3 % (30-36); Mean Corpuscular Volume 85.1 fL (80-100); Monocytes Absolute Auto 1200 /uL (0-900); Neutrophils Absolute Auto 7600 /uL (1500-7000); Neutrophils Percent Auto 77.9 % (50-75); Platelet Count 203 X10^3/uL (150-400); Red Blood Cell Count 4.53 X10^6/uL (4.5-5.9); Red Cell Distribution Width 13.8 % (11.6-14.8); White Blood Cell Count 9.7 X10^3/uL (4.5-11.0)
[2023-10-31 04:58] LABS: Alanine Aminotransferase 172 IU/L (<50); Albumin 2.7 g/dL (3.5-5.0); Albumin Globulin Ratio 0.9 (1.0-2.8); Alkaline Phosphatase 82 U/L (38-126); Aspartate Aminotransferase 118 IU/L (17-59); BUN Creatinine Ratio 22.1 (6-22); Bilirubin Total 0.7 mg/dL (0.2-1.3); Blood Urea Nitrogen 19 mg/dL (9-20); Carbon Dioxide 28 mmol/L (22-32); Chloride 96 mmol/L (98-107); Estimated Glomerular Filt Rate > 60 mL/min (>60); Globulin 2.9 g/dL (1.7-4.1); Glucose 123 mg/dL (80-110); HEMOLYSIS < 15 (0-50); Potassium 3.1 mmol/L (3.4-5.1); Sodium 130 mmol/L (137-145); Total Protein 5.6 g/dL (6.3-8.2)
[2023-10-31] MEDS: ACETAMINOPHEN 325 MG TABLET 650 MG PO ×2 (05:02→14:17)
[2023-10-31 05:13] LABS: Procalcitonin 0.87 ng/mL (<0.5)
[2023-10-31] MEDS: PROCHLORPERAZINE 10 MG/2 ML VIAL 5 MG IV (05:54)
[2023-10-31] MEDS: POTASSIUM CHLORIDE 10 MEQ TAB 40 MEQ PO (05:55)
[2023-10-31 06:00] VITALS: BP 130/72; PULSE 71; RESP 16; TEMP 36.4; O2SAT 92
[2023-10-31] MEDS: PANTOPRAZOLE DR 20 MG TABLET 40 MG PO (06:01)
[2023-10-31] MEDS: SODIUM CHLORIDE 0.9% 1,000 ML 100 ML IV (06:32)
--- NOTE | 2023-10-31 07:16 | DI.US.S_ITS ---
PROCEDURE: US ABDOMEN LIMITED INDICATIONS: elevated LFT's TECHNIQUE: Real-time focused scanning was performed of the abdomen, with image documentation. COMPARISON: None. FINDINGS: Liver measures 17 cm. No focal tenderness in the right upper quadrant. No gallstones. CHD measures 5-6 mm. Pancreas is not well seen due to bowel gas. IMPRESSION: No acute sonographic abnormality in the right upper quadrant. Dictated by: Thomas Agudelo M.D. on 10/31/2023 at 12:15 Approved by: Thomas Agudelo M.D. on 10/31/2023 at 12:15
[2023-10-31] MEDS: levoFLOXacin 750 MG/150 ML PIGGYBACK 100 MG IV (07:49)
[2023-10-31] MEDS: INSULIN GLARGINE 100 UNIT/ML 3ML PEN 10 UNIT SUBCUT (07:50)
[2023-10-31 08:46] VITALS: BP 129/75; PULSE 61
[2023-10-31] MEDS: MAGNESIUM OXIDE 400 MG TABLET PO (08:46)
[2023-10-31] MEDS: AMLODIPINE 5 MG TABLET 10 MG PO (08:46)
[2023-10-31] MEDS: TAMSULOSIN 0.4 MG CAPSULE PO (08:46)
[2023-10-31] MEDS: LOSARTAN 50 MG TABLET 100 MG PO (08:46)
[2023-10-31] MEDS: BACLOFEN 10 MG TABLET PO (08:46)
[2023-10-31] MEDS: ENOXAPARIN 40 MG/0.4 ML SYRINGE SUBCUT (08:46)
[2023-10-31] MEDS: MECLIZINE HCL 12.5 MG TABLET 25 MG PO ×2 (08:47→14:17)
[2023-10-31] MEDS: FINASTERIDE 5 MG TABLET PO (08:47)
--- NOTE | 2023-10-31 10:12 | CM.DPNOTE ---
DCP Note REAL ESTATE SALES MANAGER reviewed EMR. Per provider in rounds, pt getting ultrasound today and will likely dc home after. REAL ESTATE SALES MANAGER spoke with pt and spouse at bedside. Confirm would feel safer dc home with walker and could not secure one from outside means. REAL ESTATE SALES MANAGER updated PT, placed order for walker for home use. Plan: home with spouse when stable, likely today. No other CM needs identified at this time. CM team will continue to follow as needed. MANUELITO Estrada
[2023-10-31 11:22] LABS: Adenovirus Not Detected (Not Detect); B. parapertussis Not Detected (Not Detecte); Bordetella pertussis Not Detected (Not Detect); Chlamydophila pneumoniae Not Detected (Not Detect); Coronavirus 229E Not Detected (Not Detect); Coronavirus HKU1 Not Detected (Not Detect); Coronavirus NL 63 Not Detected (Not Detect); Coronavirus OC43 Not Detected (Not Detect); Human Metapneumovirus Not Detected (Not Detect); Human Rhinovirus/Enterovirus Not Detected (Not Detect); Influenza A Not Detected (Not Detect); Influenza B Not Detected (Not Detect); Mycoplasma pneumoniae Not Detected (Not Detect); Parainfluenza Virus 1 Not Detected (Not Detect); Parainfluenza Virus 2 Not Detected (Not Detect); Parainfluenza Virus 3 Not Detected (Not Detect); Parainfluenza Virus 4 Not Detected (Not Detect); Respiratory Syncytial Virus Not Detected (Not Detect); SARS- CoV-2 Not Detected (Not Detecte)
--- NOTE | 2023-10-31 11:53 | PT.IPTN ---
Current Diagnoses Hypo-osmolality and hyponatremia (10/28/23) Depression, unspecified (10/28/23) Essential (primary) hypertension (10/28/23) Pneumonia, unspecified organism (10/28/23) Benign prostatic hyperplasia without lower urinary tract symptoms (10/28/23) Dizziness and giddiness (10/28/23) Physical Therapy Treatment Note M2 PT-IP Current Condition Start: 10/29/23 16:32 Freq: NEEDED Status: Active Protocol: Document 10/30/23 10:40 MB (Rec: 10/30/23 11:15 MB [id number]) Physical Therapy Current Condition Current Condition Evaluation Date 10/30/23 Treatment Diagnosis N/V, fall, pneumonia M3 PT-IP Subjective Start: 10/29/23 16:32 Freq: NEEDED Status: Active Protocol: Document 10/31/23 11:28 KS (Rec: 10/31/23 12:18 KS [id number]) Subjective Physical Therapy Visit Type Type Treatment Note Visit Start Time 11:28 Visit Stop Time 11:53 Total Visit Minutes 25 Notes Pts present during treatment. Physical Therapy Visit Comments Patient Comments Pt continues to feel unsteady and slightly lightheaded throughout treatment, BP stable. 120s/70s. M4 PT-IP Mobility and Gait Start: 10/29/23 16:32 Freq: NEEDED Status: Active Protocol: Document 10/31/23 11:28 KS (Rec: 10/31/23 12:18 KS [id number]) PT-Bed Mobility Assessment Sit to Supine Sit to Supine Standby Assistance,1 Person Assistance,Head of Bed Elevated,Bedrails Scooting Scooting to Edge of Bed Standby Assistance PT-Transfer Assessment Sit to and From Stand Sit to and from Stand Contact Guard Assistance,1 Person Assistance,Use of Upper Extremities Equipment Transfer Assistive Device Gait Belt,Front Wheeled Walker Orthotic/Prosthetic Devices or Brace: No Transfers Transfer Destination Bed,Chair Transfer Technique Stepping Transfer Ability Level of Assist Contact Guard Assistance,1 Person Assistance,Use of Upper Extremities Comments Mobility Comments Pt in chair upon arrival, present. Pt requested to use bathroom. was able to provide CGA for sit<>stand w/ FWW and gave appropriate safety cues for pt when sitting/standinf from toilet. Pt then took seated rest break , vitals checked before ambulating to stairs. Pt reports some lightheadedness but feels capable to do stair training. Pt ambulated ~60 ft to stairs w/ FWW CGA and ascended/descended 3 steps w/ R hand rail CGA, had 1 small LOB but was able to recover using handrail. Pt and state they feel safe to do 2 steps leading into home and pt can stay on first floor that has recliners and shower. Pt returned to room and bed SBA to CGA. Gait Assessment Gait Gait Assistance Required: Contact Guard Assist,1 Person Assist Distance (Feet) 120 Able to Maintain Weight Bearing Status Yes During Gait Assistive Devices Assistive Device Gait Belt,Front Wheeled Walker Orthotic/Prosthetic Devices or Brace: No Comments Gait Comments Pt's hesistates with gait and has slow rocío. He gait trains with FWW and PT provides CGA and manages IV pole, 60'x2. Stair Climbing Assessment Evaluation Level of Assist On Stairs Contact Guard Assistance,1 Person Assistance Devices Stair Climbing Assistive Devices Right Railing Technique/Endurance Stair Climbing Direction Ascend and Descend Stair Climbing Technique Step to Step Number of Steps Climbed 3 Stair Climbing Set # Repetitions (reps) 1 Comments Stair Climbing Comments Pt ascended/descended 3 steps w/ R rail ascending and CGA. One small LOB while ascending but able to self recover. Pts has good understanding of how to assist and cue patient at home. Has two steps to enter and can stay on first floor. PT-Balance Assessment Sitting Balance and Reactions Static Sitting Balance Ability Good Dynamic Sitting Balance Ability Good Standing Balance and Reactions Static Standing Balance Ability Fair Dynamic Standing Balance Ability Fair Device Used FWW M5 PT-IP Objective Assessments Start: 10/29/23 16:32 Freq: NEEDED Status: Active Protocol: Document 10/30/23 10:40 MB (Rec: 10/30/23 11:15 MB [id number]) Orientation Orientation/Cognition Level of Alertness Alert Orientation Name,Age,Birthday,Month,Year, Place,Situation Language Function Ability No Deficits Noted Safety Awareness Understands Safety Issues Memory Description No Deficits Noted Gross Range of Motion Upper Extremity ROM Assessment Within Functional Limits Lower Extremity ROM Assessment Within Functional Limits Strength Upper Extremity Strength Assessment Within Functional Limits Lower Extremity Strength Assessment Within Functional Limits Other Assessments Other Other Assessments Pt with normal eye ROM and normal end-range nystagmus with eye ROM testing. No spontaneous nystagmus. No acute or subacute hearing change. Pt reports history of left stapes surgery and decreased left ear hearing. Pt with hiccups during assessment that improve with upright posture with gait. Pt with forward flexed posture overall. No dizziness with rolling in the bed. M6 PT-IP Treatment Start: 10/29/23 16:32 Freq: NEEDED Status: Active Protocol: Document 10/31/23 11:28 KS (Rec: 10/31/23 12:18 KS [id number]) Physical Therapy Treatment Other Treatments Other Treatment Performed Dispensed FWW, crg training. M7 PT-IP Assessment and Plan Start: 10/29/23 16:32 Freq: NEEDED Status: Active Protocol: Document 10/31/23 11:28 KS (Rec: 10/31/23 12:18 KS [id number]) PT Summary Assessment and Plan Potential Rehabilitation Potential Good Summary Impairments Balance,Bed Mobility,Transfers ,Gait,Activity Tolerance Progress Towards Goals Progressing Toward Goals Assessment Summary Pt still reporting lightheadedness and unsteadiness throughout treatment, however was able to successfully complete stair training. was able to provide all necessary cues and assist. Dispensed FWW for home use. Pt and feel ready to d/c home today. He may benefit from HH vs OPPT: OPPT for vestibular and balance therapy. Goals Bed Mobility Goal Independent Transfer Goal Independent,Front Wheeled Walker Gait Goal Independent,Front Wheel Walker Gait Distance 150 Other Goals Pt will ascend and descend 17 steps with two rails and no more than superv assistance to allow safe home entry. Days to Meet Goals 4 Frequency of Treatment Frequency Of Treatment Once a Day Treatment Plan Physical Therapy Treatment Plan Bed Mobility Training,Transfer Training,Gait Training, Therapeutic Exercise,Balance Retraining,Neuromuscular Re-ed Other Recommendations and Next Treatment Consider checking orthostatics Focus , stair training and obtain RW for pt before d/c. Weight Bearing Status Weight Bearing Status Full Weight Bearing Recommendations To Nursing Amount of Assist Needed 1 Person Assist Discharge Recommendations PT Discharge Recommendations Home with 24/ Assist Available,Outpatient PT Other Discharge Recommendations Vestibular/balance OPPT Equipment Needed for Home Before FWW Discharge Transportation Needs at Discharge Private Vehicle
[2023-10-31 12:00] VITALS: BP 120/55; PULSE 63; RESP 18; TEMP 37; O2SAT 90
[2023-10-31] MEDS: cefTRIAXone 2,000 MG in SODIUM CHLORIDE 0.9% 100 ML 200 MG IV (13:07)
--- NOTE | 2023-10-31 15:23 | PM.DS.1 ---
History of Present Illness History of Present Illness Chief complaint: N/V/D hit head T-0 Narrative: 63-year-old male. Is a diabetic. Has history of hypertension. Is on Trulicity for his diabetes. Several days ago started to develop nausea vomiting and diarrhea. Three days ago he was seen at an outside hospital. Had labs and IV fluids. Was discharged home with Zofran. Patient has continued to have his nausea and vomiting and diarrhea despite the nausea medications since he was seen at the outside facility. His states that he is become more fatigued recently and very unsteady when he walks around. Today he fell and hit his head on the ground. He states he does remember the fall. States he did not have chest pain or lightheadedness or shortness of breath or abdominal pain prior to falling. Discharge Providers Provider Date of admission: 10/28/23 20:28 Discharge Date: 10/31/23 Primary care physician: Dre Desai MD Consults: 10/29/23 10:12 Consult to Occupational Therapy Evaluate & Treat Comment: Physician Instructions: Evaluate and treat Consult to Physical Therapy Evaluate & Treat Comment: Physician Instructions: Evaluate and Treat 10/31/23 10:11 Consult to Physical Therapy Evaluate & Treat Comment: Physician Instructions: walker for home use Discharge provider: Pawel Murray DO Summary Hospital Course Discharge Diagnosis: (1) Pneumonia: Status: Acute Plan: acute hypoxic resp failure 2/2 severe CAP CXR with dense bilateral consolidations, RR 30's, encephalopathic, hypoxic rocephin plus levaquin O2 now weaned off obtained CT chest to further characterize dense consolidations, showed likely atypical pneumonia with bilateral infilatrates. No masses. (2) Hyponatremia: Status: Acute Plan: Acute, had NS in ED BMP monitored slow correction hypovolemic - poor oral intake, nausea, vomiting improved to 130 improving with IVF (3) HTN (hypertension): Status: Acute Plan: Losartan and Norvasc restarted (4) Enlarged prostate: Status: Acute Plan: Flomax / Finasteride (5) Depression: Status: Acute Plan: Lexapro (6) Vertigo: Status: Acute Plan: likely vestibular meclizine PRN baclofen/compazine for hiccups PT eval rec outpatient vestibular PT Hospital Course: Admitted for pneumonia. Likely viral but due to dense bilateral infiltrates on CXR and CT scan he was given IV abx. Symptoms of SOB, NV and diarrhea improved. Resp PCR negative. Developed some vertigo and constant hiccups which PT rec outpatient vestibular PT for. He was discharged home on 4 more days of po levaquin to complete 1 week of abx treatment. Exam Vital Signs (past 8 hours): - 10/31/23 08:46 10/31/23 12:00 Temperature 98.6 F Pulse Rate 61 63 Respiratory Rate 18 Blood Pressure 129/75 120/55 L Pulse Oximetry 90 L Oxygen Flow Rate 0 Oxygen Delivery Method CPAP Oxygen Flow Rate 0 Narrative Exam Narrative: awake, alert, ill-appearing, hiccupping HENMT Other: not traumatic Eyes Other: eomi, reactive and equal pupils Neck Other: supple Resp Other: coarse breath sounds bilaterally L>R Cardio Other: RRR Neuro Other: w/o focal deficits Objective Labs 10/31/23 04:31 10/31/23 04:31 Labs: Laboratory Results - last 24 hr 10/31/23 10/31/23 04:31 10:18 WBC 9.7 RBC 4.53 Hgb 13.6 Hct 38.5 L MCV 85.1 MCH 30.0 MCHC 35.3 RDW 13.8 Plt Count 203 Neut % (Auto) 77.9 H Lymph % (Auto) 8.9 L Brantley % (Auto) 12.0 Eos % (Auto) 1.0 L Baso % (Auto) 0.2 Neut # (Auto) 7600 H Lymph # (Auto) 900 L Br[place]ley # (Auto) 1200 H Eos # (Auto) 100 Baso # (Auto) 0 Sodium 130 L Potassium 3.1 L Chloride 96 L Carbon Dioxide 28 BUN 19 Creatinine 0.86 Estimated GFR > 60 BUN/Creatinine Ratio 22.1 H Glucose 123 H Calcium 8.0 L Total Bilirubin 0.7 AST 118 H ALT 172 H Alkaline Phosphatase 82 Total Protein 5.6 L Albumin 2.7 L Globulin 2.9 Albumin/Globulin Ratio 0.9 L Procalcitonin 0.87 H Chlamy pneumoniae PCR Not detected Adenovirus (PCR) Not detected B.parapertussis DNA PCR Not detected Coronavirus OC43 (PCR) Not detected Coronavirus HKU1 (PCR) Not detected Coronavirus 229E (PCR) Not detected SARS-CoV-2 (PCR) Not detected Coronavirus NL63 (PCR) Not detected Human Metapneumovir PCR Not detected Influenza Type A (PCR) Not detected Influenza Type B (PCR) Not detected M. pneumoniae (PCR) Not detected Parainfluenza 1 (PCR) Not detected Parainfluenza 2 (PCR) Not detected Parainfluenza 3 (PCR) Not detected Parainfluenza 4 (PCR) Not detected RSV (PCR) Not detected Entero/Rhino (PCR) Not detected PFSH Medical History (Updated 10/30/23 @ 15:01 by Pawel Murray DO) Enlarged prostate HTN (hypertension) Social History household members: spouse Smoking Status: Never smoker alcohol intake: current Discharge Plan Discharge Plan Patient Disposition: Home Provider Discharge Comment: You were diagnosed with a pneumonia. You improved with antibiotics so will finish some antibiotics at home. I've sent meclizine for your dizziness. Discharge orders & Medications Prescriptions: New levofloxacin 750 mg tablet 750 mg PO DAILY 4 Days Qty: 4 0RF meclizine 25 mg tablet 25 mg PO Q6HR PRN (Reason: Vertigo) Qty: 20 0RF Continued multivitamin Tablet 1 tab PO DAILY celecoxib [Celebrex] 200 mg Capsule 200 mg PO DAILY tamsulosin 0.4 mg Capsule 0.4 mg PO BID amlodipine 10 mg Tablet 10 mg PO DAILY epinephrine [EpiPen] 0.3 mg/0.3 mL Auto-Injector 0.3 mg SUBCUT PRN PRN (Reason: Allergic Reaction) losartan 100 mg Tablet 100 mg PO DAILY finasteride 5 mg Tablet 5 mg PO DAILY magnesium 200 mg Tablet 400 mg PO DAILY cholecalciferol (vitamin D3) 125 mcg (5,000 unit) Tablet 125 mcg PO DAILY Trulicity 1.5 mg/0.5 mL pen injector 1.5 mg SUBCUT WEEKLY Patient Comments: [NO ORIGINAL SIG] escitalopram oxalate [Lexapro] 10 mg Tablet 10 mg PO BEDTIME Follow up/Referrals: Garrick Desai MD [Primary Care Provider] - 2 Weeks Visit Report/Discharge Packet Instructions: DI for Pneumonia -- Adult, DI for Vertigo, How to Prevent Falls, Meclizine, Levofloxacin Stand Alone Forms: Patient Portal/API, Stroke Signs & Symptoms Discharge Data Primary Care Provider: Garrick Desai Quality VTE Deep Vein Thrombosis/Pulmonary Embolism Present on Admission: No
[2023-11-02 14:00] LABS: Legionella pneumo Antigen Positive (Negative)
== END 2023-10-31 14:25 | disposition home or self-care (01) | DRG 193 ==
LOC: ED 20:24 → AC 20:29
PROVIDERS: Student in an Organized Health Care Education/Training Program; Admitting Provider Internal Medicine; Emergency Provider Emergency Medicine; PCP Family Medicine; Referring Provider Emergency Medicine; Visit Provider Internal Medicine
DX: J18.9 Pneumonia, unspecified organism (principal); J96.01 Acute respiratory failure with hypoxia; E87.1 Hypo-osmolality and hyponatremia; G93.40 Encephalopathy, unspecified; I10 Essential (primary) hypertension; N40.0 Benign prostatic hyperplasia without lower urinary tract symptoms; F32.A Depression, unspecified; R42 Dizziness and giddiness; E11.9 Type 2 diabetes mellitus without complications; E86.0 Dehydration; S00.81XA Abrasion of other part of head, initial encounter; W18.30XA Fall on same level, unspecified, initial encounter; Z79.85 Long-term (current) use of injectable non-insulin antidiabetic drugs
CPT/HCPCS: 0241U; 36415; 70450; 71045; 71260; 76705; 80048; 80053; 81003; 81015; 82962; 83036; 83605; 83690; 83735; 84145; 84295; 85007; 85025; 87040; 87449; 87507; 87633; 93005; 96374; 97116; 97162; 97166; 97530; 99284; 99285; J0696; J0780; J1650; J1815; J1956; J2405; J2765

== ENCOUNTER 2023-12-27 18:29 | Emergency (ER) | payer OTHER, SELFPAY ==
[2023-10-28 21:47] VITALS: BMI 30.8
[2023-12-27 18:38] VITALS: BP 152/92; PULSE 70; RESP 18; TEMP 37.4; O2SAT 99; BMI 34.0
--- NOTE | 2023-12-27 18:56 | DI.RAD.S_ITS ---
PROCEDURE: XR CHEST 1V INDICATIONS: SOB TECHNIQUE: One view of the chest was acquired. COMPARISON: [facility], CR, XR CHEST 1V, 10/28/2023, 20:34. FINDINGS: Surgical changes and devices: None. Lungs and pleura: Low lung volumes. No dense consolidation or pleural effusion. Mediastinum: Borderline heart size. Bones and chest wall: Degenerative changes. IMPRESSION: Single view radiograph. No acute abnormality. Low lung volumes. Dictated by: Thomas Agudelo M.D. on 12/27/2023 at 20:24 Approved by: Thomas Agudelo M.D. on 12/27/2023 at 20:25
--- NOTE | 2023-12-27 20:32 | ED_ITS ---
HPI - General Adult General Chief complaint: Shortness of Breath/Dyspnea Stated complaint: SOB/tight lungs/post pnemonia Time Seen by Provider: 12/27/23 18:55 Source: patient Mode of arrival: Ambulatory History of Present Illness HPI narrative: Patient is a 63-year-old male. Approximately 2 months ago he was admitted to the hospital for hypoxia secondary to pneumonia. This turned out to be Legionella. He completed antibiotics. Was turning back normal. With the past day or so he started to have return of the shortness of breath. No fevers. Went to the walk-in clinic. Had a nasal swab performed. Given his history was sent here to the emergency department for further evaluation. Denies any fevers. Related Data Home Medications Medication Instructions Recorded Confirmed amlodipine 10 mg tablet 10 mg PO DAILY 10/28/23 12/27/23 celecoxib 200 mg capsule (Celebrex) 200 mg PO DAILY 10/28/23 12/27/23 cholecalciferol (vitamin D3) 125 125 mcg PO DAILY 10/28/23 12/27/23 mcg (5,000 unit) tablet epinephrine 0.3 mg/0.3 mL 0.3 mg SUBCUT PRN PRN Allergic 10/28/23 12/27/23 injection, auto-injector (EpiPen) Reaction escitalopram oxalate 10 mg tablet 10 mg PO BEDTIME 10/28/23 12/27/23 (Lexapro) finasteride 5 mg tablet 5 mg PO DAILY 10/28/23 12/27/23 losartan 100 mg tablet 100 mg PO DAILY 10/28/23 12/27/23 magnesium 200 mg tablet 400 mg PO DAILY 10/28/23 12/27/23 multivitamin 1 tab PO DAILY 10/28/23 12/27/23 tamsulosin 0.4 mg capsule 0.4 mg PO BID 10/28/23 12/27/23 tirzepatide 5 mg/0.5 mL mg SUBCUT 12/27/23 12/27/23 subcutaneous pen injector (Mounjaro) Previous Rx's Medication Instructions Recorded meclizine 25 mg tablet 25 mg PO Q6HR PRN Vertigo #20 tabs 10/31/23 Allergies Allergy/AdvReac Type Severity Reaction Status Date / Time aspirin Allergy Hives Verified 12/27/23 18:00 [place] nut Allergy Anaphylaxis Verified 12/27/23 18:00 michael seed Allergy Anaphylaxis Verified 12/27/23 18:00 flaxseed Allergy Anaphylaxis Verified 12/27/23 18:00 hazelnut Allergy Anaphylaxis Verified 12/27/23 18:00 ibuprofen Allergy Hives Verified 12/27/23 18:00 pine nut Allergy Anaphylaxis Verified 12/27/23 18:00 sesame seed Allergy Anaphylaxis Verified 12/27/23 18:00 oxycodone AdvReac Vomiting Verified 12/27/23 18:00 Review of Systems Constitutional Constitutional: Reports system reviewed and no additional complaints, except as documented ENT Ears, Nose, Mouth, and Throat: Reports system reviewed and no additional complaints, except as documented Cardiovascular Cardiovascular: Reports system reviewed and no additional complaints, except as documented Respiratory Respiratory: Reports system reviewed and no additional complaints, except as documented Integumentary/Breasts Skin/Breast: Reports system reviewed and no additional complaints, except as documented Patient History Medical History Enlarged prostate HTN (hypertension) Social History household members: spouse Smoking Status: Former smoker alcohol intake: current Smoking Status: Former smoker alcohol intake frequency: holidays/special occasions only Substance Use Type: does not use Exam Initial Vital Signs Initial Vital Signs: Vital Signs Temperature 99.4 F 12/27/23 18:38 Pulse Rate 70 12/27/23 18:38 Respiratory Rate 18 12/27/23 18:38 Blood Pressure 152/92 H 12/27/23 18:38 Pulse Oximetry 99 12/27/23 18:38 Oxygen Delivery Method Room Air 12/27/23 18:38 Const General: cooperative, comfortable and No ill appearing [facility] Head: normal to inspection and normocephalic Resp Effort & Inspection: normal respiratory effort Auscultation: clear to auscultation bilaterally Cardio Rate: regular rate Neuro General: patient alert, patient awake and moves all extremities Course Orders Ordered: ED Orders 12/27/23 18:56 XR chest 1V Stat EKG-12 Lead Stat Vital Signs Vital signs: Vital Signs - 8 hr 12/27/23 18:38 12/27/23 20:45 Temperature 99.4 F Pulse Rate 70 42 L Respiratory Rate 18 16 Blood Pressure 152/92 H 133/83 Pulse Oximetry 99 99 Oxygen Delivery Method Room Air Room Air Medical Decision Making Imaging Data Chest x-ray: Radiologist's Impression: PROCEDURE: XR CHEST 1V INDICATIONS: SOB TECHNIQUE: One view of the chest was acquired. COMPARISON: [facility], CR, XR CHEST 1V, 10/28/2023, 20:34. FINDINGS: Surgical changes and devices: None. Lungs and pleura: Low lung volumes. No dense consolidation or pleural effusion. Mediastinum: Borderline heart size. Bones and chest wall: Degenerative changes. IMPRESSION: Single view radiograph. No acute abnormality. Low lung volumes. ECG Data Attestation: I personally reviewed and interpreted this ECG as follows: Interpretation: Sinus rhythm Ventricular rate is 78 Frequent PVCs Normal axis No ST T wave changes MDM Narrative Medical decision making narrative: Patient is influenza A positive. This test was performed of the walk-in clinic prior to arrival here in the emergency department. He has not hypoxic. Lungs are clear. Chest x-ray is unremarkable. EKG shows frequent PVCs but no other acute abnormalities. There was no indication for antibiotics. Will have him continue to take all of his medications as directed. We did discuss the expected course over the next couple days and specific return precautions. He expressed understanding and agreement with plan. Discharge Plan Departure Patient Disposition: Home Clinical Impression: Influenza A Instructions: Influenza Activity Restrictions/Additional Instructions: You can take Tylenol/ibuprofen for any headaches were fevers. Be sure that you were increasing your fluid intake. Continue to take all of your medications as directed. Return to the emergency department for new or worsening symptoms. Prescriptions: No Action Mounjaro 5 mg/0.5 mL pen injector SUBCUT Patient Comments: [NO ORIGINAL SIG] multivitamin Tablet 1 tab PO DAILY celecoxib [Celebrex] 200 mg Capsule 200 mg PO DAILY tamsulosin 0.4 mg Capsule 0.4 mg PO BID amlodipine 10 mg Tablet 10 mg PO DAILY epinephrine [EpiPen] 0.3 mg/0.3 mL Auto-Injector 0.3 mg SUBCUT PRN PRN (Reason: Allergic Reaction) losartan 100 mg Tablet 100 mg PO DAILY finasteride 5 mg Tablet 5 mg PO DAILY magnesium 200 mg Tablet 400 mg PO DAILY cholecalciferol (vitamin D3) 125 mcg (5,000 unit) Tablet 125 mcg PO DAILY escitalopram oxalate [Lexapro] 10 mg Tablet 10 mg PO BEDTIME meclizine 25 mg tablet 25 mg PO Q6HR PRN (Reason: Vertigo) Qty: 20 0RF Referrals: Garrick Desai MD [Primary Care Provider] - Stand Alone Forms: Patient Portal/API
[2023-12-27 20:45] VITALS: BP 133/83; PULSE 42; RESP 16; O2SAT 99
== END 2023-12-27 20:45 | disposition home or self-care (01) ==
PROVIDERS: Emergency Provider Emergency Medicine; PCP Family Medicine
DX: J10.1 Influenza due to other identified influenza virus with other respiratory manifestations (principal); R07.9 Chest pain, unspecified; Z20.822 Contact with and (suspected) exposure to COVID-19
CPT/HCPCS: 0241U; 71045; 93005; 99281; 99284